=== PATIENT | male | born 1965 | race Caucasian/White ===

== ENCOUNTER 2020-11-26 09:32 | Outpatient (REF) | payer OTHER, SELFPAY ==
[2020-11-26 10:41] LABS: Hematocrit 46.4 % (42-52); Hemoglobin 15.8 g/dl (14.0-18.0); Mean Corpuscular HGB Conc 34.1 g/dl (31.0-36.0); Mean Corpuscular Hemoglobin 30.2 pg (27.0-33.0); Mean Corpuscular Volume 88.5 fL (80-98); Mean Platelet Volume 10.4 fL (9.4-12.4); Platelet Count 208 X10*3/uL (160-400); Red Blood Count 5.24 X10*6/uL (4.60-5.80); Red Cell Distribution Width 13.2 % (11.0-16.0)
[2020-11-26 11:03] LABS: Alanine Aminotransferase 17 U/L (0-40); Albumin Level 4.3 g/dL (3.5-5.0); Alkaline Phosphatase 61 U/L (39-117); Anion Gap 11 (12-20); Aspartate Amino Transferase 16 U/L (5-37); Bilirubin Total 0.6 mg/dL (0.0-1.0); Blood Urea Nitrogen 16 mg/dL (9-16); Calcium 8.8 mg/dL (8.4-10.2); Carbon Dioxide 25 mmol/L (22-29); Chloride 109 mmol/L (96-108); Cholesterol 191 mg/dL; Estimated Glomerular Filt Rate > 60; Glucose Random 92 mg/dL (60-115); HDL Cholesterol 34 mg/dL; LDL Cholesterol Calculated 138 mg/dl; Potassium 4.1 mmol/L (3.3-5.1); Sodium 141 mmol/L (135-145); Total Protein 6.9 g/dL (6.5-8.0); Triglycerides 97 mg/dL
[2020-11-26 11:23] LABS: Prostate Specific Antigen Scr 0.67 ng/mL (<0.05-4.0); TSH reflex Free T4 0.36 uIU/mL (0.32-4.0); Vitamin D 25-OH Total 16.4 ng/mL (>30)
== END 2020-11-26 09:33 | disposition home or self-care (01) ==
LOC: HO.LAB 09:32
PROVIDERS: PCP Internal Medicine; Visit Provider Internal Medicine
DX: Z00.00 Encounter for general adult medical examination without abnormal findings (principal); R53.83 Other fatigue; E55.9 Vitamin D deficiency, unspecified; Z12.5 Encounter for screening for malignant neoplasm of prostate
CPT/HCPCS: 36415; 80053; 80061; 82306; 84153; 84443; 85027

== ENCOUNTER 2021-06-23 09:30 | Outpatient (REF) | payer OTHER, SELFPAY ==
--- NOTE | ~2021-06-23 | XR_ITS ---
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 TECHNIQUE: frontal, lateral, tunnel and patella sunrise views FINDINGS: BONES: No fracture or dislocation is present. JOINTS: Narrowing of joint spaces suggest mild degenerative osteoarthritis. Articular surfaces remain smooth. No osteophytes. SOFT TISSUE: Normal XR/XR knee RT 4V IMPRESSION: Mild degenerative osteoarthritis. No joint effusion.
== END 2021-06-23 09:31 | disposition home or self-care (01) ==
LOC: HO.XRAY 09:30
PROVIDERS: PCP Internal Medicine; Visit Provider Internal Medicine
DX: M25.561 Pain in right knee (principal)
CPT/HCPCS: 73564

== ENCOUNTER 2022-04-30 09:01 | Outpatient (REF) | payer OTHER, SELFPAY ==
[2022-04-30 10:04] LABS: Hematocrit 46.7 % (42.0-52.0); Hemoglobin 15.6 g/dl (14.0-18.0); Mean Corpuscular HGB Conc 33.4 g/dl (31.0-36.0); Mean Corpuscular Hemoglobin 29.3 pg (27.0-33.0); Mean Corpuscular Volume 87.6 fL (80.0-98.0); Mean Platelet Volume 10.5 fL (9.4-12.4); Platelet Count 176 X10*3/uL (160-400); Red Blood Count 5.33 X10*6/uL (4.60-5.80); Red Cell Distribution Width 13.3 % (11.0-16.0)
[2022-04-30 10:39] LABS: Alanine Aminotransferase 22 U/L (0-40); Albumin Level 4.4 g/dL (3.5-5.0); Alkaline Phosphatase 57 U/L (39-117); Anion Gap 15 (12-20); Aspartate Amino Transferase 17 U/L (5-37); Bilirubin Total 1.2 mg/dL (0.0-1.0); Blood Urea Nitrogen 19 mg/dL (9-16); Calcium 8.8 mg/dL (8.4-10.2); Carbon Dioxide 23 mmol/L (22-29); Chloride 107 mmol/L (96-108); Cholesterol 200 mg/dL; Estimated Glomerular Filt Rate > 60; Glucose Fasting 86 mg/dL (60-99); HDL Cholesterol 39 mg/dL; LDL Cholesterol Calculated 145 mg/dl; Potassium 4.3 mmol/L (3.3-5.1); Sodium 141 mmol/L (135-145); Total Protein 7.1 g/dL (6.5-8.0); Triglycerides 81 mg/dL
[2022-04-30 11:02] LABS: Prostate Specific Antigen Scr 0.71 ng/mL (<0.05-4.0)
== END 2022-04-30 09:02 | disposition home or self-care (01) ==
LOC: HO.LAB 09:01
PROVIDERS: PCP Internal Medicine; Visit Provider Internal Medicine
DX: Z00.00 Encounter for general adult medical examination without abnormal findings (principal); R53.83 Other fatigue; Z12.5 Encounter for screening for malignant neoplasm of prostate
CPT/HCPCS: 36415; 80053; 80061; 84153; 84443; 85027

== ENCOUNTER 2022-08-23 11:23 | Outpatient (REF) | payer OTHER, SELFPAY ==
--- NOTE | ~2022-08-23 | XR_ITS ---
EXAMINATION: XR CHEST CLINICAL INFORMATION: Cough x3 weeks COMPARISON: None TECHNIQUE: 2 views of the chest were obtained. FINDINGS: The lungs are well-expanded and clear.. The heart size and perivascular is normal. There is moderate spondylosis dorsal spine. No aggressive lytic or sclerotic process seen. XR/XR chest 2V IMPRESSION: Unremarkable chest examination.
== END 2022-08-23 11:24 | disposition home or self-care (01) ==
LOC: HO.XRAY 11:23
PROVIDERS: PCP Internal Medicine; Visit Provider Internal Medicine
DX: J45.41 Moderate persistent asthma with (acute) exacerbation (principal)
CPT/HCPCS: 71046

== ENCOUNTER 2023-05-08 09:46 | Outpatient (REF) | payer OTHER, SELFPAY | END 2023-05-08 09:47 | disposition home or self-care (01) | LOC: HO.LAB 09:46 | PROVIDERS: PCP Internal Medicine; Visit Provider Internal Medicine | DX: Z00.00 Encounter for general adult medical examination without abnormal findings (principal); Z12.5 Encounter for screening for malignant neoplasm of prostate; E78.2 Mixed hyperlipidemia; R53.83 Other fatigue | CPT/HCPCS: 36415; 80053; 80061; 84153; 85025 ==

== ENCOUNTER 2023-09-25 09:54 | Emergency (ER) | payer OTHER, SELFPAY ==
[2023-09-25 10:26] VITALS: BP 153/93; PULSE 83; RESP 18; O2SAT 98; BMI 33.6
--- NOTE | 2023-09-25 13:15 | PC.NURSE ---
Patient not in waiting room at 12:55 or 1:06
== END 2023-09-25 13:33 | disposition left against medical advice (07) ==
LOC: HO.ED 13:21
PROVIDERS: Emergency Provider Emergency Medicine; PCP Internal Medicine
DX: R06.9 Unspecified abnormalities of breathing (principal)
CPT/HCPCS: 99281

== ENCOUNTER 2024-07-01 09:17 | Outpatient (REF) | payer OTHER, SELFPAY ==
[2024-07-01 09:39] LABS: MANUAL DIFF FLAG NO
[2024-07-01 10:46] LABS: Basophils Absolute Auto 0.1 X10*3/uL (0.0-0.2); Basophils Percent Auto 0.7 % (0-2); Eosinophils Absolute Auto 0.4 X10*3/uL (0.0-0.4); Hematocrit 47.1 % (42.0-52.0); Imm Gran Abs Auto 0.03 X10*3/uL (0.00-0.03); Imm Gran Pct Auto 0.3 % (0.0-0.4); Lymphocytes Absolute Auto 2.4 X10*3/uL (1.2-4.9); Lymphocytes Percent Auto 25.9 % (20-40); Mean Corpuscular Hemoglobin 30.2 pg (27.0-33.0); Mean Corpuscular Volume 88.9 fL (80.0-98.0); Monocytes Absolute Auto 0.7 X10*3/uL (0.1-1.2); Monocytes Percent Auto 7.1 % (2-11); Neutrophils Absolute Auto 5.7 x10*3/uL (2.0-8.3); Platelet Count 150 X10*3/uL (160-400); Red Cell Distribution Width 13.2 % (11.0-16.0); White Blood Count 9.1 X10*3/uL (4.8-10.8)
[2024-07-01 11:45] LABS: Prostate Specific Antigen 0.64 ng/mL (<0.05-4.0)
[2024-07-01 11:46] LABS: Alanine Aminotransferase 18 U/L (0-40); Albumin Level 4.3 g/dL (3.5-5.0); Alkaline Phosphatase 56 U/L (39-117); Anion Gap 10 (12-20); Aspartate Amino Transferase 19 U/L (5-37); Bilirubin Total 0.7 mg/dL (0.0-1.0); Blood Urea Nitrogen 17 mg/dL (9-16); Calcium 9.3 mg/dL (8.4-10.2); Carbon Dioxide 28 mmol/L (22-29); Chloride 109 mmol/L (96-108); Cholesterol 177 mg/dL (<200); Estimated Glomerular Filt Rate > 60; Glucose Random 84 mg/dL (60-115); HDL Cholesterol 35 mg/dL (>40); LDL Cholesterol Calculated 106 mg/dL (<100); Sodium 143 mmol/L (135-145); Total Protein 7.2 g/dL (6.5-8.0); Triglycerides 184 mg/dL (<150)
== END 2024-07-01 09:18 | disposition home or self-care (01) ==
LOC: HO.LAB 09:17
PROVIDERS: PCP Internal Medicine; Visit Provider Internal Medicine
DX: Z00.00 Encounter for general adult medical examination without abnormal findings (principal); I10 Essential (primary) hypertension; E78.2 Mixed hyperlipidemia; Z12.5 Encounter for screening for malignant neoplasm of prostate
CPT/HCPCS: 36415; 80053; 80061; 84153; 85025

== ENCOUNTER 2024-10-11 10:45 | Day surgery (SDC) | payer OTHER, SELFPAY ==
--- NOTE | 2024-10-10 10:15 | HO.ANESPROP2 ---
Documented by User: Alayna Hurtado NP 10/10/24 10:15 HPI - Anesthesia Eval Consult details Narrative: 59yo M for Colonoscopy [facility] Social History Social History Are you a primary health care social worker to a significant other at home: No Do you presently have visiting nurse or other home services: No Patient Tobacco Use Status: Never used Tobacco Cigarette Packs Per Day: 1 Cigarettes Per Day: 20.0 Years Smoked: 30 Use of substances other than those prescribed or required for medical reasons: No Have you been hit, kicked, punched, or otherwise hurt by someone within the past year? If so, by whom?: No Advance Directives: No Advance Directives Information Provided: Yes Advance Directives on File: No Recently lost weight without trying: No Nutrition Risks: No Nutritional Risk Poor oral hygiene: No Meds Allergies Allergy/AdvReac Type Severity Reaction Status Date / Time No Known Allergies Allergy Verified 10/11/24 11:43 [No Known Allergies*] Home Medications ?Medication ?Instructions ?Recorded ?Confirmed ?Last Taken ?Type budesonide-formoterol HFA 160 2 puff inhalation BID 10/10/24 10/10/24 Unknown History mcg-4.5 mcg/actuation aerosol inhaler Assessment and Plan Assessment Anesthesia Assessment: Chart Reviewed Documented by User: Jose Orellana MD 10/11/24 13:22 [facility] Family History Family history of problems with anesthesia: No Surgical History History of Problems with Anesthesia: No Social History Social History Are you a primary health care social worker to a significant other at home: No Do you presently have visiting nurse or other home services: No Patient Tobacco Use Status: Never used Tobacco Cigarette Packs Per Day: 1 Cigarettes Per Day: 20.0 Years Smoked: 30 Use of substances other than those prescribed or required for medical reasons: No Have you been hit, kicked, punched, or otherwise hurt by someone within the past year? If so, by whom?: No Advance Directives: No Advance Directives Information Provided: Yes Advance Directives on File: No Recently lost weight without trying: No Nutrition Risks: No Nutritional Risk Poor oral hygiene: No Meds Allergies Allergy/AdvReac Type Severity Reaction Status Date / Time No Known Allergies Allergy Verified 10/11/24 11:43 [No Known Allergies*] Home Medications ?Medication ?Instructions ?Recorded ?Confirmed ?Last Taken ?Type budesonide-formoterol HFA 160 2 puff inhalation BID 10/10/24 10/10/24 Unknown History mcg-4.5 mcg/actuation aerosol inhaler Exam Airway Mallampati Class: II TM Dist: <=3cm Neck ROM: Full Loose/Missing/Broken Teeth: No Heart: ok Lungs: ok Assessment and Plan Assessment Anesthesia Assessment: Anesthesia Plan Discussed Final Anesthetic Review Family History of Problems with Anesthesia: No History of Problems with Anesthesia: No NPO: Yes ASA Class: II Final Preanesthetic Review: No Changes in Pt Med Stat, Meds/Allgs Chart Reviewed, Consent Obtained/Reviewed and Anes Risks/Benef Reviewed Patient Risk: Intermediate Procedure Risk: Low Anesthetic Plan Anesthetic Plan: MAC: and Agree w/ Assess. and Plan Disposition: Standard PACU
[2024-10-11 11:52] VITALS: BP 107/76; PULSE 81; RESP 14; TEMP 36.7; O2SAT 97; BMI 32.4
[2024-10-11] MEDS: Lactated Ringers 1,000 ML 100 ML IVCONT (11:56)
--- NOTE | 2024-10-11 12:05 | MHC.SHP ---
Pre-Procedural Eval Section A - 24 Hr Update-Section A only Date of Service: 10/11/24 Section B - Complete if H&P > 30 days Chief Complaint: screening Details of Present Illness: see H&P no changes Relevant Family History (Specify if Yes): No Relevant Social History: None Present Medications: see Short Stay Collaborative assessment Medical History: No relevant PMH History of Previous Operations: No relevant previous surgery Allergies: Allergies Allergy/AdvReac Type Severity Reaction Status Date / Time No Known Allergies Allergy Verified 10/11/24 11:43 [No Known Allergies*] Review of Systems Sugical H&P ROS: Negative: Constitution, Cardiovascular, Respiratory, Neurological, Psychiatric, Hem-Onc, Allergic/Immunologic, Gastrointestinal, Genitourinary, Musculoskeletal, Integumentary, Endocrine and Eyes/Ears/Nose/Throat Exam Surgical H&P Exam: Normal: HEENT, Normal: Heart, Normal: Lungs, Normal: Extremities, Normal: Abdomen, Normal: Skin and Normal: Neurological Plan Diagnosis/Plan: Unchanged I have reviewed the history and physical and performed a pertinent physical examination on my patient. No changes have occurred unless specified. Time Spent With Patient Time: Total time managing care of this patient today ____ minutes.
[2024-10-11 14:03] VITALS: BP 115/71; PULSE 75; RESP 18; TEMP 36.5; O2SAT 97
--- NOTE | 2024-10-12 00:06 | OP_ITS ---
DATE OF SERVICE: 10/11/2024 SURGEON: Go Alegre MD INDICATIONS: Colon cancer screening. PREOPERATIVE DIAGNOSIS: POSTOPERATIVE DIAGNOSIS: PROCEDURE PERFORMED: Colonoscopy to the cecum with snare polypectomy and biopsy. ESTIMATED BLOOD LOSS: COMPLICATIONS: ANESTHESIA: Monitored anesthesia care. ASSISTANTS: SPECIMENS: DESCRIPTION OF PROCEDURE: A history and physical was performed. The risks and benefits of the procedure were explained to the patient. Informed consent was obtained. The patient was placed in the left lateral decubitus position. A digital rectal exam was performed and was found to be normal. The Olympus pediatric video colonoscope was introduced into the rectum and advanced to the cecum. The cecum was identified by transillumination, palpation, and identification of ileocecal valve. Examination was performed. The scope was removed. He tolerated the procedure well and was returned to the recovery area in stable condition. FINDINGS: The terminal ileum was not examined. There was some liquid stool coating the mucosa. This was washed and suctioned. Five polyps were identified; 1 in the cecum, 2 in the right colon, 1 at the hepatic flexure, and 1 in the sigmoid at 30 cm; all were removed using cold snare and/or biopsy forceps. The polyp in the sigmoid appeared to be consistent with a lipoma. All were less than 10 mm. One polyp in the right colon was not recovered. Retroflexed examination showed moderate-sized internal hemorrhoids. IMPRESSION: Colon polyps. RECOMMENDATION: Follow up the biopsy results. MD YAMILE Corona/SARAL / [id number]
== END 2024-10-11 14:51 | disposition home or self-care (01) ==
PROVIDERS: PCP Internal Medicine; Visit Provider Internal Medicine Gastroenterology
PROC: 0DJD8ZZ Inspection of Lower Intestinal Tract, Via Natural or Artificial Opening Endoscopic (ICD-10-PCS; CPT 45378; principal; 2024-10-11 13:20)
DX: Z12.11 Encounter for screening for malignant neoplasm of colon (principal); Z86.0101 Personal history of adenomatous and serrated colon polyps; D12.2 Benign neoplasm of ascending colon; D12.3 Benign neoplasm of transverse colon; D12.5 Benign neoplasm of sigmoid colon; K63.5 Polyp of colon; I10 Essential (primary) hypertension; J45.909 Unspecified asthma, uncomplicated; G47.33 Obstructive sleep apnea (adult) (pediatric); Z79.899 Other long term (current) drug therapy; Z99.89 Dependence on other enabling machines and devices; F17.210 Nicotine dependence, cigarettes, uncomplicated
CPT/HCPCS: 45385; 88305; J2003; J2704

== ENCOUNTER 2025-04-23 10:18 | Outpatient (REF) | payer OTHER, SELFPAY ==
--- OUTSIDE RECORDS SUMMARY | 2024-09-13 07:40 | XMS_ITS ---
Author Organization [facility] Address [address] [place] [address] Care Team Providers Care Sleever Name Role Phone Fernando Mirza MD Primary Care Provider Unavailab Go Martinez Jr Unavailable REASON FOR VISIT screening Encounters Encounter Location Date Provider Diagnosis [facility] [place] [address] [place] [phone] 09/13/2024 Go Alegre Jr Plan Of Treatment No Information Progress Notes * JEANNIE ELIZONDODOB:[birth year] (59 yo M)Acc No.[id number]:09/13/2024 COLON WITH MAC Patient: JEANNIE LANDRUM Provider: Frankie Alegre MD :1965 A ge:59 Y S ex:Male Date:09/13/2024 Address:[address] [place], [place] [phone] Pcp:Fernando Mirza MD Subjective: * Chief Complaints: [...] MD Date: 0 09/13/2024 Generated for Subhash ng/Faravinderg/eTransmitting on: 0 04/23/2025 12:43 PM EDT
--- OUTSIDE RECORDS SUMMARY | 2024-10-11 09:20 | XMS_ITS ---
Author Organization [facility] Address [address] [place] [address] Care Team Providers Care Prescription Benefit Specialist Name Role Phone Fernando Mirza MD Primary Care Provider Unavailab Go Martinez Jr Unavailable REASON FOR VISIT screening Encounters Encounter Location Date Provider [place] [facility] [place] [address] [place] [phone] 10/11/2024 Go Alegre Jr Colon cancer screening [...] * JEANNIE ELIZONDODOB:[birth year] (59 yo M)Acc No.[id number]:10/11/2024 COLON WITH MAC Patient: JEANNIE LANDRUM Provider: Frankie Alegre MD :1965 A ge:59 Y S ex:Male Date:10/11/2024 [place] [address] [facility] [id number] Pcp:Fernando Mirza MD Subjective: * Chief Complaints: * 1 . Screening. * Medical History: Objective: * Vitals: Assessment: * Assessment: 1. C olon cancer screening - Z12.11 (Primary) 2 . P ersonal history of adenomatous and serrated colon polyps - Z86.0101 3 . C olon polyps - K63.5 ? Plan: * Treatment: * Procedure Codes: 4 5385 LESION REMOVAL COLONOSCOPY, 44250 COLONOSCOPY AND BIOPSY, Modifiers: 59 , 0529F INTRVL 3+YRS PTS CLNSCP DOCD * * The named appointment provid er may or may not be the originator of this progress note, and it is not deemed complete until electronically signed by the appointment provider. Sign off status: Pending * Provider: Frankie Alegre MD Date: 0 10/11/2024 Generated for Subhash bacon/Kathleen/Darronitting on: 0 04/23/2025 12:43 PM EDT
--- NOTE | ~2025-04-23 | XR_ITS ---
EXAMINATION: XR CHEST CLINICAL INFORMATION: ACUTE COUGH COMPARISON: August 23, 2022 TECHNIQUE: PA and lateral views FINDINGS: Pulmonary reticular pattern. Patchy opacity right lower hemithorax. No pleural effusion or pneumothorax. No gross hyperinflation. Cardiomediastinal silhouette size is normal with calcified plaques in the thoracic aortic arch. Multilevel thoracolumbar spondylosis.. XR/XR chest 2V IMPRESSION: Chronic interstitial lung disease with questionable acute airspace disease right middle lung lobe and right lung base. Underlying neoplasm cannot be excluded. Electronically signed by: Dariel Herbert MD 04/23/2025 11:31 AM EDT
--- OUTSIDE RECORDS SUMMARY | 2025-04-23 12:43 | XMS_ITS | Patient Health Record ---
Author Organization [facility] Address [address] [place] [address] Care Team Providers Care Chief Librarian Extension Department Name Role Phone Yuki MARIE, Fernando Primary Care Provider Go Green Jr Unavailable [phone] Allergies No Known Allergies Results Component Value Reference Range Notes Pathology Reviewed date:10/15/2024 01:29:38 PM Interpretation: Performing Lab:[facility], [address] [place] [phone] Notes/Report: Reason For Referral No Information Medications Medication SIG (Take, Route, Frequency, Duration) Notes Start Date End Date Status MiraLax (colon prep) 8.3 ounce ((238) grams mixed with Gatorade or Crystal Light orally begin at 5:00 p.m. the day before the procedure for 1 day 08/30/2024 Active Dulcolax (colon prep) 5 MG take at 3:00 p.m and 7:00p.m. Orally two tablets twice a day for one day for 1 day 08/30/2024 Active MiraLax (colon prep) 17 GM/SCOOP mixed with Gatorade or Crystal Light Orally begin at 5:00 p.m. the day before the procedure for 1 day 08/29/2024 Active Immunizations Vaccine Route Administration Date Status Comme nts Influenza Unknown 05/25/2018 Administered Social History Tobacco Use: Social History Observation Description Date Details (start date - stop date) Current Smoker NA - NA Tobacco Use/Smoking Question Answer Notes Patient is a current smoker How often do you smoke cigarettes? every day How many cigarettes a day do you smoke? 11-20 How soon after you wake up d o you smoke your first cigarette? 6-30 minutes Are you interested in quitting? Thinking about q uitting Alcohol Screen Question Answer Notes Did you have a drink contain ing alcohol in the past year? Yes How often did you have a dri nk containing alcohol in the past year? 2 to 4 times a month (2 points) How many drinks did you have on a typical day when you were drinking in the past year? 1 or 2 drinks (0 point) How often did you have 6 or more drinks on one occasion in the past year? Never (0 point) Points 2 Interpretation Negative Problems Problem Type SNOMED Code ICD Code Onset Dates Problem Status W/U Status Risk Notes Problem 751140322 Colon cancer screening (Z12.11) Active confirmed Problem 99729185 Rectal bleeding (K62.5) Active confirmed Problem 97569109 Encounter for other preprocedural examination (Z01.818) Active confirmed Problem 273173100 Personal history of colonic polyps (Z86.0100) Active confirmed Vital Signs Blood pressure diastolic 00 mm Hg 08/29/2024 Height 67 in 08/29/2024 Blood pressure systolic 00 mm Hg 08/29/2024 Weight 210 lbs 08/29/2024 BMI 32.89 kg/m2 08/29/2024 Encounters Encounter Location Date Provider Diagnosis [facility] Outpatient [address] [place], [place] [phone] 10/11/2024 Go Alegre Jr Colon cancer screening Z12.11 ; Personal history of adenomatous and serrated colon polyps Z86.0101 and Colon polyps K63.5 [facility] [address] [place] [phone] 08/29/2024 Go Alegre Jr Colon cancer screening Z12.11 ; Encounter for other preprocedural examination Z01.818 and Personal history of colonic polyps Z86.0100 [facility] [address] [place] [phone] 08/29/[address] [facility] [address] [place] [phone] 09/02/[address] [facility] [address] [place] [phone] 09/03/[address] [facility] [address] [place] [phone] 10/15/2024 Go Candelarioifford Assessments Encounter Date Diagnosis (ICD Code) Assessment Notes Treatment Notes Treatment Clinical Notes Section Notes 10/11/2024 Colon cancer screening (ICD-10 - Z12.11) 10/11/2024 Personal history of adenomatous and serrated colon polyps (ICD-10 - Z86.0101) 08/29/2024 Colon cancer screening (ICD-10 - Z12.11) Colonoscopy material was printed We discussed colonoscopy today. We discussed risks and benefits of the procedure today. He understands these and agrees to proceed. 08/29/2024 Encounter for other preprocedural examination (ICD-10 - Z01.818) We discussed colonoscopy today. We discussed risks and benefits of the procedure today. He understands these and agrees to proceed. 10/11/2024 Colon polyps (ICD-10 - K63.5) 08/29/2024 Personal history of colonic polyps (ICD-10 - Z86.0100) We discussed colonoscopy today. We discussed risks and benefits of the procedure today. He understands these and agrees to proceed. Plan Of Treatment Future Test Test Name Order Date COLONOSCOPY 02/25/2016 COLONOSCOPY 04/11/2019 COLONOSCOPY 08/29/2024 Insurance Providers Payer Name Payer Address Payer Phone Subscriber Number Group Number Insured Name Patient Relationship to Insured Coverage Start Date Coverage End Date [employer] [address] [address] [place] [address] [id number] JEANNIE ELIZONDO Self - patient is the insured Medical (General) History Medical History History ICD Code Colonoscopy 06/18, tubular adenoma, five -year followup asthma hypertension Obstructive sleep apnea/CPAP Surgical History Surgery Date(Month/Year)
--- OUTSIDE RECORDS SUMMARY | 2025-04-23 12:43 | XMS_ITS | Clinical Summary ---
Author Organization [facility] Address [address] [address] Phone Care Team Providers Care Ballistic Expert Name Role Phone Fernando Mirza MD Primary Care Provider [phone] Immunizations Immunization Administration Dates Next Due COVID-19 (Pre-05/22) Moderna Vaccine, mRNA, PF 0 09/24/2020,08/27/2020 Social History Tobacco Use Types Packs/Day Years Used Date Smoking Tobacco: Never Assessed Education Answer Date Recorded Are you interested in more education? Not on savannah e 11/25/2022 Are you concerned about learning? Not on file 11/25/2022 No 11/25/2022 No 11/25/2022 Digital Access Answer Date Recorded No 12/24/2022 No 12/24/2022 No 12/24/2022 Reliable internet access at home? Not on file 12/24/2022 Device with a working camera? Not on file Sex and Gender Information Value Date Recorded Sex Assigned at Not on file Legal Sex Male 4:01 PM EST Gender Identity Not on file Sexual Orientation Not on file Plan of Treatment Health Maintenance Due Date Last Done Comments Adult Td,Tdap Booster 1965 LIPID PANEL 1965 DEPRESSION SCREENING 1977 SMOKING Hx and SMOKELESS TOBACCO SCREENING 1978 HEPATITIS C SCREENING 1983 HIV ONE-TIME SCREENING (18-6 5 YEARS) 1983 COLOGUARD 2010 COLONOSCOPY 2010 COLORECTAL CANCER SCREENING 2010 FIT TEST 2010 FOBT 2010 SIGMOIDOSCOPY 2010 VIRTUAL COLONOSCOPY 2010 PNEUMOCOCCAL VACCINES (50+ years) (1 of 1 - PCV) 2015 INFLUENZA VACCINE (#1) 2025 04/21/2020 COVID-19 VACCINE (3 - 2024-2 6 season) 2025 09/24/2020, 08/27/2020 ZOSTER VACCINES Completed 08/03/2020, 06/20/2020 HEPATITIS A VACCINES Aged Out No long er eligible based on patient's age to complete this topic HIB VACCINES Aged Out No longer eligi ble based on patient's age to complete this topic MENINGOCOCCAL VACCINES (ACWY) Aged Out No longer eligible based on patient's age to complete this topic MENINGOCOCCAL VACCINES (B) Aged Out N o longer eligible based on patient's age to complete this topic Medical Devices Not on file Insurance [employer] Member Subscriber Plan / Payer (Ef fective 2016-Present) Name:Ruddy Nguyen Relation to Subscriber:Self Name:Ruddy Nguyen Payer ID:[id number] (NAIC) Type:PPO Address: [place] [id number] [facility] [employer]EF[employer] ADMIN[employer] [facility]MIN[facility] [employer] [facility] [employer] Care Teams Ballistic Expert Relationship Specialty Start Date End Date Fernando Mirza MD [address] [place] [phone] PCP - General Internal Medicine 08/25/20 Additional Source Comments The information contained in this document represents components of the legal health record. It is not the complete legal health record.[facility]
--- OUTSIDE RECORDS SUMMARY | 2025-04-23 12:43 | XMS_ITS | Clinical Summary ---
Author Organization [facility] Address [address] [place] [address] Care Team Providers Care Bowling Ball Grader And Marker Name Role Phone Unavailable Primary Care Provider Unavailabl e Allergies No known active allergies Medications * This document contains information received from the source organization and may not represent a complete record from that organization. No known medications Social History Tobacco Use Types Packs/Day Years Used Date Smoking Tobacco: Former Smokeless Tobacco: Never Alcohol Use Standard Drinks/Week Comments Not Asked 0 (1 standard drink = 0.6 oz pur e alcohol) Sex and Gender Information Value Date Recorded Sex Assigned at Not on file Legal Sex Male 3:56 PM EDT Gender Identity Not on file Sexual Orientation Not on file Last Filed Vital Signs Vital Sign Reading Time Taken Comments Blood Pressure 128/80 12/16/2014 9:17 AM EDT Pulse 72 12/16/2014 9:17 AM EDT Temperature - - Respiratory Rate - - Oxygen Saturation - - Inhaled Oxygen Concentration - - Weight 99.8 kg (220 lb) 12/16/2014 9:17 AM EDT Height 175.3 cm (5' 9 ) 12/16/2014 9:17 AM EDT Body Mass Index 32.49 12/16/2014 9:17 AM EDT Plan of Treatment Health Maintenance Due Date Last Done Comments Hepatitis C Screening 1965 DTaP/Tdap/Td (1 - Tdap) 1983 Hep B (1 of 3 - 19+ 3-dose series) 1984 Pneumococcal 50+ years (1 of 1 - PCV) 2015 Zoster (Shingrix) (1 of 2) 2015 COVID-19 Vaccine ( - 2023-2 5 season) 2025 Influenza (#1) 2025 HPV Vaccine (No Doses Required) Completed Hep A Aged Out No longer eligi ble based on patient's age to complete this topic Hib Aged Out No longer eligi ble based on patient's age to complete this topic Meningococcal ACWY Aged Out No longer eligible based on patient's age to complete this topic
--- OUTSIDE RECORDS SUMMARY | 2025-04-23 12:44 | XMS_ITS | Clinical Summary ---
Author Organization [facility] Address [address] [place] [address] Phone Care Team Providers Care Trust Evaluation Supervisor Name Role Phone Fernando Mirza MD Primary Care Provider [phone] Encounters Date Type Department Care Team Description 04/22/2025 Telephone Lung Screening Program - [place] [address] [facility] [address] [place] [phone] Zuri Ray MA from Last 3 Months Social History Tobacco Use Types Packs/Day Years Used Date Smoking Tobacco: Never Assessed Sex and Gender Information Value Date Recorded Sex Assigned at Not on file Legal Sex Male 3:57 AM EST Gender Identity Not on file Sexual Orientation Not on file Plan of Treatment Upcoming Encounters Date Type Department Care Team (Late st Contact Info) Description 05/09/2025 5:15 PM EDT Hospital Encounter [facility] CT Scan [address] [place] [phone] Health Maintenance Due Date Last Done Comments DTaP,Tdap,and Td Vaccines (1 - Tdap) 1984 Hepatitis B Vaccines (1 of 3 - 19+ 3-dose series) 1984 Pneumococcal Vaccine: 50+ Ye ars (1 of 1 - PCV) 2015 Zoster Vaccines (1 of 2) 2015 Cholesterol Screening (Lipid Panel) 07/03/2022 Colorectal Cancer Screening: Colonoscopy 07/03/2022 HIV Screening 07/03/2022 Hepatitis C Screening 07/03/2022 Social Influencers of Health Screening 07/03/2022 Depression Screening 07/31/2024 COVID-19 Vaccine (1 - 2023-2 5 season) 2025 Influenza Vaccine (#1) 2025 RSV Immunization Adult Patie nts (1 - 1-dose 75+ series) 2040 HIB Vaccines Aged Out No longer eligi ble based on patient's age to complete this topic HPV Vaccines Aged Out No longer eligi ble based on patient's age to complete this topic Hepatitis A Vaccines Aged Out No long er eligible based on patient's age to complete this topic IPV Vaccines Aged Out No longer eligi ble based on patient's age to complete this topic MMR Vaccines Aged Out No longer eligi ble based on patient's age to complete this topic Meningococcal ACWY Vaccine Aged Out N o longer eligible based on patient's age to complete this topic Meningococcal B Vaccine Aged Out No l onger eligible based on patient's age to complete this topic RSV Immunization Patients Un luis alfredo 20 months Aged Out No longer eligible b ased on patient's age to complete this topic Varicella Vaccines Aged Out No longer eligible based on patient's age to complete this topic Insurance Care Teams Trust Evaluation Supervisor Relationship Specialty Start Date End Date Fernando Mirza MD PCP - General 09/28/10
--- OUTSIDE RECORDS SUMMARY | 2025-04-23 12:44 | XMS_ITS | Encounter Summary ---
Author Organization [facility] Address [address] [place] [address] Care Team Providers Care Supervisor Process Testing Name Role Phone Fernando Mirza MD Primary Care Provider [phone] Reason for Visit * Reason Onset Date Comments Appointment 04/22/2025 1st Notification Encounter Details Date Type Department Care Team ([facility] st Contact Info) Description 04/22/2025 Telephone Lung Screening Program - [address] [address] Zuri Ray [place] Social History Tobacco Use Types Packs/Day Years Used Date Smoking Tobacco: Never Assessed Sex and Gender Information Value Date Recorded Sex Assigned at Not on file Legal Sex Male 3:57 AM EST Gender Identity Not on file Sexual Orientation Not on file documented as of this encounter Progress Notes * Zuri Ray MA - 04/22/2025 2:41 PM EDT Ruddy Nguyen was contacted by the Lung Cancer Screening Program today to confirm the appointmentof their Lung Cancer Screening. The patient is currently scheduled to have their screening on Friday May 09, 2025, at 515 PM at [facility]. No answer left message. For all screenings scheduled during the week, the patient will check in at Patient Registration on the first floor of the main hospital. For screenings that take place on the weekend or after 5pm, check-in directly in Radiology. The patient was given the Lung Cancer Screening Program phone number, , to contact if they have any additional questions, concerns or need to reschedule. Patients are encouraged to call our office and reschedule if they are exhibiting any cold-like symptoms, have recently been treated for Pneumonia or Influenza (the flu) or have had another CT of their Chest since their last screening. documented in this encounter Plan of Treatment Upcoming Encounters Date Type Department Care Team (Late st Contact Info) Description 05/09/2025 5:15 PM EDT Hospital Encounter [facility] CT Scan [address] [place] [phone] documented as of this encounter Visit Diagnoses Not on filedocumented in this encounter Care Teams Supervisor Process Testing Relationship Specialty Start Date End Date Fernando Mirza MD PCP - General 09/28/10 documented as of this encounter
== END 2025-04-23 10:19 | disposition home or self-care (01) ==
LOC: HO.XRAY 10:18
PROVIDERS: PCP Internal Medicine; Visit Provider Internal Medicine
DX: R05.1 Acute cough (principal)
CPT/HCPCS: 71046

== ENCOUNTER → 2025-04-23 10:53 | Outpatient (BNV) | payer OTHER, SELFPAY | PROVIDERS: PCP Internal Medicine; Visit Provider Radiology Diagnostic Radiology | DX: R05.1 Acute cough (principal) | CPT/HCPCS: 71046 ==

== ENCOUNTER 2025-05-02 11:27 | Emergency (ER) | payer OTHER, SELFPAY ==
--- OUTSIDE RECORDS SUMMARY | 2024-09-13 07:40 | XMS_ITS ---
Author Organization [facility] Address [address] [place] [address] Care Team Providers Care Analysis Director Name Role Phone Fernando Mirza MD Primary Care Provider Unavailab Go Martinez Jr Unavailable REASON FOR VISIT screening Encounters Encounter Location Date Provider Diagnosis [facility] [place] [address] [place] [phone] 09/13/2024 Go Alegre Jr Plan Of Treatment No Information Progress Notes * JEANNIE ELIZONDODOB:[birth year] (59 yo M)Acc No.[id number]:09/13/2024 COLON WITH MAC Patient: JEANNIE LANDRUM Provider: Frankie Alegre MD :1965 A ge:59 Y S ex:Male Date:09/13/2024 Address:[address] [place], [place] [phone] Pcp:Fernando Mirza MD Subjective: * Chief Complaints: [...] 0 09/13/2024 Generated for Subhash bacon/Kathleen/eTransmitting on: 1 01:45 PM EDT
--- OUTSIDE RECORDS SUMMARY | 2024-10-11 09:20 | XMS_ITS ---
Author Organization [facility] Address [address] [place] [address] Care Team Providers Care Building Services Engineer Name Role Phone Fernando Miraz MD Primary Care Provider Unavailab Go Martinez Jr Unavailable [phone] REASON FOR VISIT screening Encounters Encounter Location Date Provider Diagnosis [facility] [place] [address] [place] [phone] 10/11/2024 Go Alegre Jr Colon cancer screening [...] * JEANNIE ELIZONDODOB:[birth year] (59 yo M)Acc No.[id number]:10/11/2024 COLON WITH MAC Patient: JEANNIE LANDRUM Provider: Frankie Alegre MD :1965 A ge:59 Y S ex:Male Date:10/11/2024 [place] [address] [facility] [id number] Pcp:Fernando Mirza MD Subjective: * Chief Complaints: * 1 . Screening. * Medical History: Objective: * Vitals: Assessment: * Assessment: 1. C olon cancer screening - Z12.11 (Primary) 2 . P ersonal history of adenomatous and serrated colon polyps - Z86.0101 3 . C olon polyps - K63.5 ? Plan: * Treatment: * Procedure Codes: 4 5385 LESION REMOVAL COLONOSCOPY, 95450 COLONOSCOPY AND BIOPSY, Modifiers: 59 , 0529F INTRVL 3+YRS PTS CLNSCP DOCD * * The named appointment provid er may or may not be the originator of this progress note, and it is not deemed complete until electronically signed by the appointment provider. Sign off status: Pending * Provider: Frankie Alegre MD Date: 0 10/11/2024 Generated for Subhash bacon/Kathleen/Jessasmitting on: 1 01:45 PM EDT
--- NOTE | ~2025-05-02 | CT_ITS ---
EXAMINATION: CT CHEST WITH CONTRAST CLINICAL INFORMATION: Shortness of breath COMPARISON: 04/23/2025 x-ray TECHNIQUE: Multidetector volumetric CT imaging of the chest was obtained after the administration of 65 mL of Omnipaque 350 intravenous contrast without immediate adverse reactions. Axial MIP volume rendering provided. Sagittal and coronal reformatted images were obtained. This CT examination was performed using dose optimization techniques as appropriate, variously including the following: *Automated exposure control *Adjustment of mA and/or kV according to patient size (this includes techniques or standardized protocols for targeted exams where dose is matched to indication/reason for exam; i.e. extremities or head) *Use of iterative reconstruction technique FINDINGS: LUNGS: The lungs are clear with no evidence of inflammation or nodules. Right middle lobe opacity visible on the prior x-ray is no longer present. MEDIASTINUM: Multiple low attenuating nodules are present in the thyroid gland. PLEURA: There is no pleural effusion. No pleural mass or thickening. AXILLA: No lymphadenopathy. UPPER ABDOMEN: Small hypodensities in the liver likely represent cysts or less likely hemangiomas. OSSEOUS STRUCTURES: Bridging and nonbridging anterior osteophytes are present in the thoracic spine with minimal disc space narrowing. CT/CT chest w IV con IMPRESSION: Unremarkable lungs. Numerous thyroid hypodensities are visible. Follow-up with nonemergent thyroid ultrasound There are changes in the thoracic spine consistent with diffuse idiopathic skeletal hyperostosis (DISH) Fleischner guidelines were followed. Electronically signed by: Jefry Daugherty MD 05/02/2025 03:47 PM EDT
[2025-05-02 11:32] VITALS: BP 134/80; PULSE 82; RESP 16; TEMP 36.4; O2SAT 99; BMI 27.4
--- NOTE | 2025-05-02 11:34 | ED.GENADULT ---
HPI - General Adult General Chief complaint: Upper Respiratory Symptoms Stated complaint: Back Pain No Injury Time Seen by Provider: 05/02/25 13:33 Source: patient Mode of arrival: ambulatory Limitations: no limitations History of Present Illness ED Provider: SUNDAR Patel HPI narrative: This is a 59-year-old male with no significant medical history presents to the emergency department with shortness of breath, cough, feeling unwell greater than a week. He reports he was recently treated for pneumonia with multiple antibiotics including cefpodoxime, doxycycline and an amoxicillin based antibiotic. Was also given prednisone. Despite all this he continues to have a cough and now he is coughing so much his back and ribs hurt. He tells me he feels drained, and overall unwell. Denies chest pain, headache, vision changes, dizziness, weakness, changes in urinary or bowel habits, abdominal pain, nausea, vomiting, diarrhea. Denies sick contacts. Denies recent travel , nonsmoker Related Data Home Medications ?Medication ?Instructions ?Recorded ?Confirmed budesonide-formoterol HFA 160 2 puff inhalation BID 10/10/24 10/10/24 mcg-4.5 mcg/actuation aerosol inhaler Previous Rx's ?Medication ?Instructions ?Recorded albuterol sulfate 90 mcg/actuation 2 inh inhalation Q4-6H PRN 05/02/25 breath activated powder inhaler shortness of breath or wheezing #1 ea ketorolac 10 mg tablet 10 mg PO TID PRN pain 5 days #15 05/02/25 tabs prednisone 20 mg tablet 40 mg (2 x 20 mg) PO DAILY 5 days 05/02/25 #10 tabs Allergies Allergy/AdvReac Type Severity Reaction Status Date / Time No Known Allergies (No Known Allergy Verified 05/02/25 11:32 Allergies*) Review of Systems Review of Systems: Yes all other systems are reviewed and are negative PMFSH Past Medical History Attestation statement: The following information was validated with the patient. Source: old records reviewed and nursing notes reviewed Social History Social History Are you a primary home care music therapist to a significant other at home: No Do you presently have visiting nurse or other home services: No Patient Tobacco Use Status: Never used Tobacco Cigarette Packs Per Day: 1 Cigarettes Per Day: 20.0 Years Smoked: 30 Advance Directives: No Advance Directives Information Provided: No Physical Exam ED Exam Exam: Appearance: Alert.? Oriented X3.? No acute distress.? Head: Normocephalic, atraumatic, no step-offs or deformities Eyes: Pupils equal, round and reactive to light.? Neck: Normal inspection.? Neck supple.? CVS: Normal heart rate and rhythm.? Pulses normal.? Respiratory: No respiratory distress.? Breath sounds bibasilar crackles .? Abdomen: Soft and nontender.? Skin: Skin warm and dry.? Normal skin color.? Normal skin turgor.? Extremities: No lower extremity edema.? No calf ttp. 5/5 strength to bilateral upper and lower extremities Neuro: Oriented X 3.? No motor deficit.? No sensory deficit. CN 2-12 intact Vital Signs: Vital Signs - 24 hr 05/02/25 11:32 05/02/25 14:23 05/02/25 16:29 Temperature 97.6 F 98.2 F Pulse Rate 82 70 86 Respiratory Rate 16 18 18 Blood Pressure 134/80 124/70 125/89 Pulse Oximetry 99 97 98 Oxygen Delivery Method Room Air Room Air Room Air BMI result Body Mass Index 27.4 vss Course Course Course Narrative: This is a rapid medical exam performed by Nancy Lemon NP: Additional HPI, ROS, PE not included below will be deferred to primary provider. Patient is a 59-year-old male presenting emergency department with complaint of right mid back pain. States has had cough for 3 weeks, was tx for pneumonia but sxs not improving. Was also told he had an abnormal finding on his cxr. PCP told pt there was nothing else he could do and referred to the ED> Plan: Labs, will defer imaging to primary provider. Reevaluation(s) Reevaluation #1: Patient does report that he has some back discomfort particularly in the right lower back lumbar paraspinous tenderness on palpation. No saddle anesthesias, I do not suspect cauda equina, cord compression, epidural abscess. Patient is not at risk for this. He is ambulatory. Will give him Toradol. CBC did have a leukocytosis no left shift. I suspect this is secondary to patient taking steroids as he reports he was taking prednisone. Chemistry unremarkable. Negative lactic acid. Coags negative and negative D-dimer unlikely PE he is saturating 98% with ambulatory trial. Flu, COVID negative. CT chest with unremarkable lungs numerous thyroid hypodensities follow-up with nonemergent thyroid ultrasound. Changes in the thoracic spine consistent with diffuse idiopathic skeletal hyperostosis. I did educate patient on these findings he is aware, at bedside also. No questions. Will have him follow up with PCP. Educated patient on diagnosis and treatment plan, answered all question, patient verbalizes understanding. At this time patient will be discharged home, advised to return with new or worsening symptoms. Educated on worrisome signs and symptoms and when to return. At this time I feel comfortable discharge home. Time: 17:30 Medications Administered Discontinued Medications Generic Name Dose Route Start Last Admin Trade Name Freq PRN Reason Stop Dose Admin Ceftriaxone Sodium 1 gm 05/02/25 15:36 05/02/25 16:07 Ceftriaxone Sodium 1 Gm Vial IVPUSH 05/02/25 15:37 1 gm ONCE ONE Administration Magnesium Sulfate 2 gm in 50 mls @ 25 mls/hr 05/02/25 15:36 05/02/25 16:07 Magnesium Sulfate/H2o IV 05/02/25 17:35 25 mls/hr ONCE ONE Administration Iohexol 100 ml 05/02/25 15:37 05/02/25 15:37 Iohexol 350 Mg/Ml 100 Ml Infus..Btl IV 05/02/25 15:38 65 ml ONCE ONE Administration Methylprednisolone Sodium Succinate 125 mg 05/02/25 15:36 05/02/25 16:07 Methylprednisolone Sod Succ 125 Mg/2 Ml Vial IVPUSH 05/02/25 15:37 125 mg ONCE ONE Administration Medical Decision Making Medical Decision Making [facility] Narrative: 1350 59-year-old male presents with shortness of breath ongoing for greater than a week. Recently treated for pneumonia with multiple antibiotics. Patient does tell me he was treated with cefpodoxime, an amoxicillin based antibiotic and doxycycline. He does tell me he was treated with 1 before the others however unclear exactly why he was on multiple antibiotics. He tells me at some point they saw on abnormality on chest x-ray which was done by PCP so they advised him to get a CT of the chest. Physical exam bibasilar crackles. Patient coughing during my exam with a dry cough. No tachycardia noted History and physical exam concerning for not improving pneumonia versus bronchitis versus viral illness. Less likely PE however will rule out. Unlikely ACS, acute hypoxic respiratory failure, dissection. Plan labs, imaging Differential Diagnosis Differential Diagnoses: The differential diagnosis associated with the presentation includes (History and physical exam concerning for not improving pneumonia versus bronchitis versus viral illness. Less likely PE however will rule out. Unlikely ACS, acute hypoxic respiratory failure, dissection.) Admission/Observation Consideration of admission/observation: Escalation of care including admission/observation considered (possisble ) Consult Healthcare Provider Management of the patient was discussed with: Hospitalist Lab Data MDM Lab Attestation statement: I reviewed the patient's lab results. 05/02/25 11:43 05/02/25 11:43 Labs: Lab Results 05/02/25 05/02/25 05/02/25 Range/Units 11:43 13:44 15:53 WBC 14.6 H (4.8-10.8) X10*3/uL RBC 5.63 (4.60-5.80) X10*6/uL Hgb 16.8 (14.0-18.0) g/dl Hct 48.3 (42.0-52.0) % MCV 85.8 (80.0-98.0) fL MCH 29.8 (27.0-33.0) pg MCHC 34.8 (31.0-36.0) g/dl RDW 13.2 (11.0-16.0) % Plt Count 172 (160-400) X10*3/uL MPV 10.9 (9.4-12.4) fL Immature Gran % (Auto) 1.6 H (0.0-0.4) % Neut % (Auto) 72.3 (45-73) % Lymph % (Auto) 18.9 L (20-40) % Sawyer % (Auto) 5.7 (2-11) % Eos % (Auto) 1.1 (0-4) % Baso % (Auto) 0.4 (0-2) % Lymph # (Auto) 2.8 (1.2-4.9) X10*3/uL Sawyer # (Auto) 0.8 (0.1-1.2) X10*3/uL Eos # (Auto) 0.2 (0.0-0.4) X10*3/uL Baso # (Auto) 0.1 (0.0-0.2) X10*3/uL Abs Immat Gran (auto) 0.24 H (0.00-0.03) X10*3/uL Absolute Neuts (auto) 10.6 H (2.0-8.3) x10*3/uL Absolute Nucleated RBC 0.000 (0.0-0.012) X10*3/uL Nucleated RBC % (auto) 0.0 (0.0-0.2) /100WBC PT 11.2 (10.9-12.4) SEC INR 1.0 (0.9-1.1) D-Dimer High Sensitivty < 150 NG/ML Sodium 141 (135-145) mmol/L Potassium 4.1 (3.3-5.1) mmol/L Chloride 105 (96-108) mmol/L Carbon Dioxide 31 H (22-29) mmol/L Anion Gap 9 L (12-20) BUN 13 (9-16) mg/dL Creatinine 0.94 (0.5-1.4) mg/dL Estim Creat Clear Calc 81.8 Estimated GFR > 60 Random Glucose 144 H (60-115) mg/dL Lactic Acid 1.0 (0.5-2.0) mmol/L Calcium 8.8 (8.4-10.2) mg/dL Total Bilirubin 0.7 (0.0-1.0) mg/dL AST 20 (5-37) U/L ALT 36 (0-40) U/L Alkaline Phosphatase 58 (39-117) U/L Total Protein 7.2 (6.5-8.0) g/dL Albumin 4.4 (3.5-5.0) g/dL COVID-19 (CARROLL) Negative (Negative) COVID-19 Clin Com See Note Influenza Type A (PARKER) Negative (Negative) Influenza Type B (PARKER) Negative (Negative) Influenza A & B Note See Note Independent Interpretation I performed an independent interpretation of an: EKG and CT Scan (CT/CT chest w IV con IMPRESSION: Unremarkable lungs. Numerous thyroid hypodensities are visible. Follow-up with nonemergent thyroid ultrasound There are changes in the thoracic spine consistent with diffuse idiopathic skeletal hyperostosis (DISH) Fleischner guidelines were followed.) Radiology Impression Discussion of test interpretation with radiology: I have reviewed the radiologist's reading. Critical Care Time Critical Care Time Critical Care Time: No Discharge Plan Discharge Clinical Impression: Bronchitis, Acute lumbar back pain Patient Disposition: Home, Self-Care Instructions: Acute Bronchitis (ED) Additional Instructions: Take your medications as prescribed. If you were prescribed antibiotics today, it is important that you take your medication to their entirety, do not skip any doses, do not finish them early. Follow-up with your primary care provider this week. Return to the emergency department with new or worsening symptoms. Such as fevers, chills, chest pain, shortness of breath, nausea, vomiting, dizziness, headache, vision changes, lethargy In case of emergency call 911 Toradol has been sent to your pharmacy, you tolerated this well in the department. Please take this as prescribed do not take this with ibuprofen, or other NSAIDs, do not mix this with alcohol. Side effects of this medication including increased risk for bleeding and possible kidney injury. CT/CT chest w IV con IMPRESSION: Unremarkable lungs. Numerous thyroid hypodensities are visible. Follow-up with nonemergent thyroid ultrasound There are changes in the thoracic spine consistent with diffuse idiopathic skeletal hyperostosis (DISH) Fleischner guidelines were followed. Prescriptions: New ketorolac 10 mg tablet 10 mg PO TID PRN (Reason: pain) 5 Days Qty: 15 0RF Rx Instructions: Tolerated IM or IV in department albuterol sulfate 90 mcg/actuation aerosol powdr breath activated 2 inh inhalation Q4-6H PRN (Reason: shortness of breath or wheezing) Qty: 1 0RF prednisone 20 mg tablet 40 mg PO DAILY 5 Days Qty: 10 0RF No Action budesonide-formoterol 160-4.5 mcg/actuation HFA aerosol inhaler 2 puff inhalation BID Referrals: Fernando Mirza MD [Primary Care Provider, Internal Medicine] Print Language: Mongolian
[2025-05-02 11:48] LABS: MANUAL DIFF FLAG NO
[2025-05-02 11:56] LABS: Hematocrit 48.3 % (42.0-52.0); Hemoglobin 16.8 g/dl (14.0-18.0); Imm Gran Abs Auto 0.24 X10*3/uL (0.00-0.03); Imm Gran Pct Auto 1.6 % (0.0-0.4); Lymphocytes Absolute Auto 2.8 X10*3/uL (1.2-4.9); Mean Corpuscular HGB Conc 34.8 g/dl (31.0-36.0); Mean Corpuscular Hemoglobin 29.8 pg (27.0-33.0); Mean Corpuscular Volume 85.8 fL (80.0-98.0); NRBC Abs Auto 0.000 X10*3/uL (0.0-0.012); NRBC Pct Auto 0.0 /100WBC (0.0-0.2); Platelet Count 172 X10*3/uL (160-400); Red Blood Count 5.63 X10*6/uL (4.60-5.80); White Blood Count 14.6 X10*3/uL (4.8-10.8)
[2025-05-02 11:58] LABS: INTERNATIONAL NORM RATIO 1.0 (0.9-1.1); Prothrombin Time 11.2 SEC (10.9-12.4)
[2025-05-02 12:05] LABS: Alanine Aminotransferase 36 U/L (0-40); Albumin Level 4.4 g/dL (3.5-5.0); Alkaline Phosphatase 58 U/L (39-117); Anion Gap 9 (12-20); Aspartate Amino Transferase 20 U/L (5-37); Blood Urea Nitrogen 13 mg/dL (9-16); Calcium 8.8 mg/dL (8.4-10.2); Carbon Dioxide 31 mmol/L (22-29); Chloride 105 mmol/L (96-108); Creatinine Clr Calc Pharmacy 81.8; Estimated Glomerular Filt Rate > 60; Potassium 4.1 mmol/L (3.3-5.1); Sodium 141 mmol/L (135-145); Total Protein 7.2 g/dL (6.5-8.0)
--- OUTSIDE RECORDS SUMMARY | 2025-05-02 13:45 | XMS_ITS | Clinical Summary ---
Author Organization [facility] Address [address] [place] [address] Phone Care Team Providers Care Outpatient Physical Therapist Name Role Phone Fernando Mirza MD Primary Care Provider [phone] Encounters Date Type Department Care Team Description 04/22/2025 Telephone Lung Screening Program - [place] [address] [facility] [address] [place] [phone] Zuri Ray MA from Last 3 Months [...] Description 05/09/2025 5:15 PM EDT Hospital Encounter [facility] CT Scan [address] [place] [phone] Health Maintenance Due Date Last Done Comments Colorectal Cancer Screening: Colonoscopy 1965 DTaP,Tdap,and Td Vaccines (1 - Tdap) 1984 Hepatitis B Vaccines (1 of 3 - 19+ 3-dose series) 1984 Pneumococcal Vaccine: 50+ Ye ars (1 of 1 - PCV) 2015 Zoster Vaccines (1 of 2) 2015 Cholesterol Screening (Lipid Panel) 07/03/2022 HIV Screening 07/03/2022 Hepatitis C Screening [...] to complete this topic Insurance Care Teams Outpatient Physical Therapist Relationship Specialty Start Date End Date Fernando Mirza MD PCP - General 09/28/10
--- OUTSIDE RECORDS SUMMARY | 2025-05-02 13:45 | XMS_ITS | Clinical Summary ---
Author Organization [facility] Address [address] [place] [address] Phone Care Team Providers Care Underground Mine Superintendent Name Role Phone Fernando Mirza MD Primary Care Provider [phone] Immunizations Immunization Administration Dates Next Due COVID-19 [...] - 2024-2 6 season) 2025 09/24/2020, 08/27/2020 RSV VACCINE (1 - 1-dose 75+ series) 2040 ZOSTER VACCINES Completed 08/03/2020, 06/20/2020 HEPATITIS A [...] topic Medical Devices Not on file Insurance [facility] [employer] [facility] [employer] [facility] [employer] [facility] [employer] [facility] [employer] [facility] [employer] [facility] [employer] [address] [address] ADMINISTRATORS [facility] [employer] Care Teams Underground Mine Superintendent Relationship Specialty Start Date End Date Fernando Mirza MD [address] [place] [id number] PCP - General Internal Medicine 08/25/20 Additional Source Comments The information contained in this document represents components of the legal health record. It is not the complete legal health record.[facility]
--- OUTSIDE RECORDS SUMMARY | 2025-05-02 13:45 | XMS_ITS | Clinical Summary ---
Author Organization [facility] Address [address] [place] [address] Care Team Providers Care Ophthalmology Assistant Name Role Phone Unavailable Primary Care Provider [...]
--- OUTSIDE RECORDS SUMMARY | 2025-05-02 13:45 | XMS_ITS | Patient Health Record ---
Author Organization [facility] Address [address] [place] [address] Care Team Providers Care Mural Painter Name Role Phone Yuki MARIE, Fernando Primary Care Provider Go Green Jr Unavailable [phone] Allergies No Known Allergies Results Component Value Reference Range Notes Pathology Reviewed date:10/15/2024 01:29:38 PM Interpretation: Performing Lab:[facility], [address] [place] [phone] Notes/Report: Reason For Referral No Information Medications [...] Problem Status W/U Status Risk Notes Problem 380972652 Colon cancer screening (Z12.11) Active confirmed Problem 27433964 Rectal bleeding (K62.5) Active confirmed Problem 96175339 Encounter for other preprocedural examination (Z01.818) Active confirmed Problem 307516497 Personal history of colonic polyps (Z86.0100) Active confirmed Vital Signs Blood pressure diastolic 00 mm Hg 08/29/2024 Height 67 in 08/29/2024 Blood pressure systolic 00 mm Hg 08/29/2024 Weight 210 lbs 08/29/2024 BMI 32.89 kg/m2 08/29/2024 Encounters Encounter Location Date Provider Diagnosis [facility] Out[facility] [address] [place], [place] [phone] 10/11/2024 Go Alegre Jr Colon cancer screening Z12.11 ; Personal history of adenomatous and serrated colon polyps Z86.0101 and Colon polyps K63.5 [facility] [address] [place] [phone] 08/29/2024 Go Alegre Jr Colon cancer screening Z12.11 ; Encounter for other preprocedural examination Z01.818 and Personal history of colonic polyps Z86.0100 [facility] [address] [place] [phone] 08/29/2024 Go Alegre Jr [facility] [address] [place] [phone] 09/02/2024 Go Alegre Jr [facility] [address] [place] [phone] 09/03/2024 Go Alegre Jr [facility] [address] [place] [phone] 10/15/2024 Go Candelarioifford Assessments Encounter Date Diagnosis [...] [employer] [address] [address] [place] [address] [id number] JEANNIE ELIZONDO Self - patient is the insured Medical (General) History Medical History History ICD Code Colonoscopy 06/18, tubular adenoma, five -year followup asthma hypertension Obstructive sleep apnea/CPAP Surgical History Surgery Date(Month/Year)
--- NOTE | 2025-05-02 14:00 | ECG_ITS ---
Test Reason : RESPIRATORY Blood Pressure : */* mmHG Vent. Rate : 72 BPM Atrial Rate : 72 BPM P-R Int : 166 ms QRS Dur : 86 ms QT Int : 372 ms P-R-T Axes : 51 26 42 degrees QTcB Int : 407 ms Normal sinus rhythm Normal ECG When compared with ECG of 17-Jun-2013 13:25, No significant change was found Referred By: Suleiman Patel Electronically Signed By: AIME CARBAJAL
[2025-05-02 14:11] LABS: COVID-19 Test Negative (Negative); IDNOW Serial# 08D9AD1C
[2025-05-02 14:19] LABS: IDNOW Serial# 6674DD1D; Influenza B2 Negative (Negative)
[2025-05-02 14:21] LABS: D Dimer High Sensitivity < 150 NG/ML
[2025-05-02 14:23] VITALS: BP 124/70; PULSE 70; RESP 18; TEMP 36.8; O2SAT 97
[2025-05-02] MEDS: iohexoL 350 MG/ML 100 ML INFUS..BTL IV (15:37)
[2025-05-02] MEDS: Magnesium Sulfate/H2O 2 GM/50 ML PIGGYBACK IV (16:07)
[2025-05-02 16:29] VITALS: BP 125/89; PULSE 86; RESP 18; O2SAT 98
[2025-05-02 18:03] LABS: Troponin-I High Sensitivity < 2.7 ng/L (<3.5-35.0)
[2025-05-02 18:38] VITALS: BP 106/79; PULSE 80; RESP 18; O2SAT 97; O2SAT 99
[2025-05-02 18:41] VITALS: BP 119/83; PULSE 83; RESP 15; TEMP 36.6; O2SAT 99
[2025-05-02 18:45] VITALS: BP 119/83; PULSE 83; RESP 15; TEMP 36.6; O2SAT 99
== END 2025-05-02 18:45 | disposition home or self-care (01) ==
PROVIDERS: Physician Assistant; Registered Nurse Emergency; Emergency Provider Emergency Medicine; PCP Internal Medicine
DX: J40 Bronchitis, not specified as acute or chronic (principal); M54.50 Low back pain, unspecified; R06.02 Shortness of breath; Z11.52 Encounter for screening for COVID-19; Z51.81 Encounter for therapeutic drug level monitoring; Z79.899 Other long term (current) drug therapy
CPT/HCPCS: 36415; 71260; 80053; 83605; 84484; 85025; 85379; 85610; 87040; 87502; 87635; 93005; 96365; 96366; 96375; 99285; J0696; J1885; J2919; J3475; Q9967

== ENCOUNTER → 2025-05-02 14:00 | Outpatient (BNV) | payer OTHER, SELFPAY | PROVIDERS: Emergency Provider Emergency Medicine; PCP Internal Medicine; Visit Provider Internal Medicine | DX: R06.02 Shortness of breath (principal) | CPT/HCPCS: 93010 ==

== ENCOUNTER → 2025-05-02 14:56 | Outpatient (BNV) | payer OTHER, SELFPAY | PROVIDERS: Emergency Provider Emergency Medicine; PCP Internal Medicine; Visit Provider Radiology Diagnostic Radiology | DX: R06.02 Shortness of breath (principal) | CPT/HCPCS: 71260 ==

== ENCOUNTER 2025-06-07 08:40 | Outpatient (REF) | payer OTHER, SELFPAY ==
--- OUTSIDE RECORDS SUMMARY | 2024-09-13 06:40 | XMS_ITS ---
Author Organization [facility] Address [address] [place] [address] Care Team Providers Care Loom Changer Name Role Phone Fernando Mirza MD Primary Care Provider Unavailab Go Martinez Jr Unavailable REASON FOR VISIT screening Encounters Encounter Location Date Provider Diagnosis [facility] [place] [address] [place] [phone] 09/13/2024 Go Alegre Jr Plan Of Treatment No Information Progress Notes * JEANNIE ELIZONDODOB:[birth year] (59 yo M)Acc No.[id number]:09/13/2024 COLON WITH MAC Patient: JEANNIE LANDRUM Provider: Frankie Alegre MD :1965 A ge:59 Y S ex:Male Date:09/13/2024 Address:[address] [place], [place] [phone] Pcp:Fernando Mirza MD Subjective: * Chief Complaints: * 1 . Screening. * Medical History: Objective: * Vitals: Assessment: Plan: * Treatment: * * The named appointment provid er may or may not be the originator of this progress note, and it is not deemed complete until electronically signed by the appointment provider. Sign off status: Pending * Provider: Frankie Alegre MD Date: 0 09/13/2024 Generated for Subhash bacon/Kathleen/eTbellsmitting on: 1 08/07/2024 08:43 AM EST
--- OUTSIDE RECORDS SUMMARY | 2024-10-11 08:20 | XMS_ITS ---
Author Organization [facility] Address [address] [place] [address] Care Team Providers Care Dietitian Helper Name Role Phone Fernando Mirza MD Primary Care Provider Unavailab Go Martinez Jr Unavailable REASON FOR VISIT screening Encounters Encounter Location Date Provider Diagnosis [facility] [place] [place] [address] [place] [phone] 10/11/2024 Go Alegre Jr Colon cancer screening Z12.11 ; Personal history of adenomatous and serrated colon polyps Z86.0101 and Colon polyps K63.5 Assessments Encounter Date Diagnosis (ICD Code) Assessment Notes Treatment Notes Treatment Clinical Notes Section Notes 10/11/2024 Colon cancer screening (ICD-10 - Z12.11) 10/11/2024 Personal history of adenomatous and serrated colon polyps (ICD-10 - Z86.0101) 10/11/2024 Colon polyps (ICD-10 - K63.5) Plan Of Treatment No Information Progress Notes * JEANNIE ELIZONDODOB:[birth year] (59 yo M)Acc No.[id number]:10/11/2024 COLON WITH MAC Patient: JEANNIE LANDRUM Provider: Frankie Alegre MD :1965 A ge:59 Y S ex:Male Date:10/11/2024 [facility] [address] [facility] [id number] Pcp:Fernando Mirza MD Subjective: * Chief Complaints: * 1 . Screening. * Medical History: Objective: * Vitals: Assessment: * Assessment: 1. C olon cancer screening - Z12.11 (Primary) 2 . P ersonal history of adenomatous and serrated colon polyps - Z86.0101 3 . C olon polyps - K63.5 ? Plan: * Treatment: * Procedure Codes: 4 5385 LESION REMOVAL COLONOSCOPY, 20018 COLONOSCOPY AND BIOPSY, Modifiers: 59 , 0529F INTRVL 3+YRS PTS CLNSCP DOCD * * The named appointment provid er may or may not be the originator of this progress note, and it is not deemed complete until electronically signed by the appointment provider. Sign off status: Pending * Provider: Frankie Alegre MD Date: 0 10/11/2024 Generated for Subhash bacon/Kathleen/Darronitting on: 1 08/07/2024 08:44 AM EST
--- OUTSIDE RECORDS SUMMARY | 2025-04-22 08:08 | XMS_ITS ---
Author Organization [facility] Address [address] [place] [phone] Care Team Providers Care Technical Professional Name Role Phone ELISABETH DESOUZA Primary Care Provider RESULTS Component Value Reference Range Notes XR Chest 2 views Reviewed date:04/26/2025 08:57:46 AM Interpretation: Performing Lab: Notes/Report: REASON FOR VISIT (2) still coughing MEDICATIONS Medication SIG (Take, Route, Fr equency, Duration) Notes Start Date End Date Status Benzonatate 100 MG 1 capsule as needed Orally Three times a day for 10 days 04/02/2025 Active Encounters Encounter Location Date Provider Diagnosis [address] [address] 04/22/2025 ELISABETH DESOZUA Acute cough R05.1 ASSESSMENTS Encounter Date Diagnosis Assessment Notes Treatment Notes Treatment Clinical Notes Section Notes 04/22/2025 Acute cough (ICD-10 - R05.1) PLAN OF TREATMENT Medication Medication Name Sig Start Date Stop Date Notes Benzonatate 100 MG 1 capsule as needed Orally Three times a day for 10 days 04/02/2025 Next Appt Details Provider Name:ELISABETH DESOUZA , 08/25/2025 03:15:00 PM, [address] [place] [address], [phone], Provider Name:ELISABETH DESOUZA , 05/21/2026 03:30:00 PM, [address] [place] [address], [phone],
--- OUTSIDE RECORDS SUMMARY | 2025-04-24 10:24 | XMS_ITS ---
Author Organization [facility] Address [address] [place], [place] [id number] Care Team Providers Care Drum Printer Name Role Phone ELISABETH DESOUZA Primary Care Provider REASON FOR VISIT (2)AF-04/24/25) cxr results/ cough not better Encounters Encounter Location Date Provider Diagnosis [address] [phone] 04/24/2025 ELISABETH DESOUZA PLAN OF TREATMENT Next Appt Details Provider Name:ELISABETH DESOUZA , 08/25/2025 03:15:00 PM, [address] [place] [address], [phone], Provider Name:ELISABETH DESOUZA , 05/21/2026 03:30:00 PM, [address] [place] [address], [phone],
--- OUTSIDE RECORDS SUMMARY | 2025-04-25 09:30 | XMS_ITS ---
Author Organization [facility] Address [address] [place], [place] [phone] Care Team Providers Care Detective Automobile Section Name Role Phone ELISABETH DESOUZA Primary Care Provider ALLERGIES No Known Allergies REASON FOR VISIT prolonged cough MEDICATIONS Medication SIG (Take, Route, Frequency, Duration) Notes Start Date End Date Status Benzonatate 100 MG 1 capsule as needed Orally Three times a day for 10 days 04/02/2025 Active Budesonide-Formoterol Fumarate 160-4.5 MCG/ACT 2 puffs Inhalation Twice a day Active guaiFENesin-Codeine 200-10 MG/5ML 5 mL as needed Orally every 12 hrs for 10 days 04/25/2025 Active predniSONE 10 MG 6 tablets Orally gissel ly x 2 days, then 5 po daily x 2 days then 4 po daily x 2 days then 3 po daily x 2 days then 2 po daily x 2 days then 1 po daily x 2 days for 12 days 04/21/2025 Active Doxycycline Hyclate 100 MG 1 tablet Oral ly twice a day for 10 day(s) 04/21/2025 Active Albuterol Sulfate HFA 108 (90 Base) MCG/ACT 2 puffs as needed Inhalation qid 05/08/2024 Active Cefpodoxime Proxetil 200 MG 1 tablet wit h food Orally every 12 hrs for 7 day(s) 04/25/2025 Active SOCIAL HISTORY Tobacco Use: Social History Observation Description Date Details (start date - stop date) Current Smoker NA - NA Sex Assigned At : Social History Observation Description Sex Assigned At Unknown Smoking Question Answer Notes Are you a: current smoker How often do you smoke Cigarettes? every day How many cigarettes a day do you smoke? 6-10 VITAL SIGNS Blood pressure systolic 128 mm Hg 04/25/20 25 Blood pressure diastolic 84 mm Hg 025 Height 68.50 in 04/25/2025 Weight 98.2 lbs 04/25/2025 BMI 14.71 kg/m2 04/25/2025 Encounters Encounter Location Date Provider Diagnosis [facility] [address] [place] [phone] 04/25/2025 ELISABETH DESOUZA Community acquired pneumonia of right middle lobe of lung J18.9 ASSESSMENTS Encounter Date Diagnosis Assessment Notes Treatment Notes Treatment Clinical Notes Section Notes 04/25/2025 Community acquired pneumonia of right middle lobe of lung (ICD-10 - J18.9) 1. Pneumonia: Right middle lobe and right base airspace disease seen on x-ray. CAT scan recommended to rule out underlying lesion. Will add cefpodoxime to current therapy and Robitussin with codeine for sleep. He will keep me apprised of his progress. I once again emphasized the need for smoking cessation PLAN OF TREATMENT Medication Medication Name Sig Start Date Stop Date Notes guaiFENesin-Codeine 200-10 MG/5ML 5 mL as needed Orally every 12 hrs for 10 days 04/25/2025 Cefpodoxime Proxetil 200 MG 1 tablet wit h food Orally every 12 hrs for 7 day(s) 04/25/2025 Pending Test Test Name Order Date CT Chest without IV contrast 04/25/2025 Next Appt Details Provider Name:ELISABETH DESOUZA , 08/25/2025 03:15:00 PM, [address] [place] [address], [phone], Provider Name:ELISABETH DESOUZA , 05/21/2026 03:30:00 PM, [address] [place] [address], [phone], Progress Notes * Examination Category Sub-Category Detail Notes Category Not es General Examination Heart: RSR, normal S1S2 Lungs: Diffuse rhonchi, gre ater on the right side Extremities: no edema General Appearance no apparent distress , pleasant Psych: alert, oriented X 3 Other normal affect History and Physical Notes * HPI (History of Present Illness) Category Sub-Category Detail Notes Category Not es General Patient present s for persistent cough and asthma symptoms. He is feeling poorly and does not feel the current medicine has improved his symptoms. He has been taking doxycycline and prednisone faithfully along with his inhalers. He is raising some phlegm but cough is persistent and keeping him up at night. We reviewed his chest x-ray results which show pneumonia
--- OUTSIDE RECORDS SUMMARY | 2025-04-25 09:53 | XMS_ITS ---
Author Organization [facility] Address [address] [place], [place] [id number] Care Team Providers Care Microsoft Exchange Administrator Name Role Phone ELISABETH DESOUZA Primary Care Provider MEDICATIONS Medication SIG (Take, Route, Frequency, Duration) Notes Start Date End Date Status guaiFENesin-Codeine 200-10 MG/5ML 5 mL as needed Orally every 12 hrs for 10 days 04/25/2025 Active Encounters Encounter Location Date Provider Diagnosis [address] [phone] 04/25/2025 ELISABETH DENNISONFORD Community acquired pneumonia of right middle lobe of lung J18.9 ASSESSMENTS Encounter Date Diagnosis Assessment Notes Treatment Notes Treatment Clinical Notes Section Notes 04/25/2025 Community acquired pneumonia of right middle lobe of lung (ICD-10 - J18.9) PLAN OF TREATMENT Medication Medication Name Sig Start Date Stop Date Notes guaiFENesin-Codeine 200-10 MG/5ML 5 mL as needed Orally every 12 hrs for 10 days 04/25/2025 Next Appt Details Provider Name:EILSABETH DESOUZA , 08/25/2025 03:15:00 PM, [address] [place] [address], [phone], Provider Name:ELISABETH Nimisha DENNISONLYLY , 05/21/2026 03:30:00 PM, [address] [place] [address], [phone],
--- OUTSIDE RECORDS SUMMARY | 2025-04-29 05:32 | XMS_ITS ---
Author Organization [facility] Address [address] [place], [place] [id number] Care Team Providers Care High Reach Operator Name Role Phone ELISABETH DESOUZA Primary Care Provider [phone] REASON FOR VISIT (2) still has cough and SOB Encounters Encounter Location Date Provider Diagnosis [address] [address] 04/29/2025 ELISABETH DESOUZA PLAN OF TREATMENT Next Appt Details Provider Name:ELISABETH DESOUZA , 08/25/2025 03:15:00 PM, [address] [place] [address], [phone], Provider Name:ELISABETH DESOUZA , 05/21/2026 03:30:00 PM, [address] [place] [address], [phone],
--- OUTSIDE RECORDS SUMMARY | 2025-05-01 10:41 | XMS_ITS ---
Author Organization [facility] Address [address] [place], [place] [id number] Care Team Providers Care Triage Register Nurse Name Role Phone ELISABETH DESOUZA Primary Care Provider REASON FOR VISIT (FYI) Work Note Encounters Encounter Location Date Provider Diagnosis [address] [address] 05/01/2025 ELISABETH DESOUZA PLAN OF TREATMENT Next Appt Details Provider Name:ELISABETH DESOUZA , 08/25/2025 03:15:00 PM, [address] [place] [address], [phone], Provider Name:ELISABETH DESOUZA , 05/21/2026 03:30:00 PM, [address] [place] [address], [phone],
--- OUTSIDE RECORDS SUMMARY | 2025-05-05 09:33 | XMS_ITS ---
Author Organization [facility] Address [address] [place], [place] [phone] Care Team Providers Care Nuclear Medicine Specialist Name Role Phone ELISABETH DESOUZA Primary Care Provider RESULTS Component Value Reference Range Notes US Thyroid Reviewed date:06/06/2025 04:49:49 PM Interpretation: Performing Lab: Notes/Report: REASON FOR VISIT work note PROBLEMS Problem Type ICD Code Onset Dates Problem Status W/U Status Risk SNOMED Code Notes Problem Multiple thyroid nodules (E04.2) Active confirmed [id number] Encounters Encounter Location Date Provider Diagnosis [address] [phone] 05/05/2025 ELISABETH DESOUZA Multiple thyroid nodules E04.2 ASSESSMENTS Encounter Date Diagnosis Assessment Notes Treatment Notes Treatment Clinical Notes Section Notes 05/05/2025 Multiple thyroid nodules (ICD-10 - E04.2) PLAN OF TREATMENT Next Appt Details Provider Name:ELISABETH DESOUZA , 08/25/2025 03:15:00 PM, [address] [place] [address], [phone], Provider Name:ELISABETH DESOUZA , 05/21/2026 03:30:00 PM, [address] [place] [address], [phone],
--- OUTSIDE RECORDS SUMMARY | 2025-05-14 10:45 | XMS_ITS ---
Author Organization [facility] Address [address] [place], [place] [id number] Care Team Providers Care Maintenance Porter Name Role Phone ELISABETH DESOUZA Primary Care Provider ALLERGIES No Known Allergies RESULTS Component Value Reference Range Notes EKG Reviewed date:05/19/2025 09:18:19 AM Interpretation: Performing Lab: Notes/Report: ECGDiastolicBP ECGHr ECGPRInterval ECGPWaveAxis ECGQRSDuration ECGQrsWaveAxis ECGQTcInterval ECGQTInterval ECGSystolicBP ECGTWaveAxis RR_DiastolicBP RR_MaxRRInterval RR_MeanHR RR_MeanRRInterval RR_MinRRInterval RR_NumBeats RR_NumNormalBeats RR_SystolicBP REASON FOR VISIT CPX, would like flu [...] smoke? 6-10 VITAL SIGNS Blood pressure systolic 132 mm Hg 05/14/20 25 Blood pressure diastolic 86 mm Hg 025 Height 67.50 in 05/14/2025 Weight 203.2 lbs 05/14/2025 BMI 31.35 kg/m2 05/14/2025 Encounters Encounter Location Date Provider Diagnosis [facility] [address] [place] [address] 05/14/2025 [facility] Encounter for genera l adult medical examination [...] abnormal findings (ICD-10 - Z00.00) 1. RHCM: [place] was done last yesr - report not [...] Multiple thyroid nodules seen on CT at [facility]. Thyroid ultrasound is pending 6. Flu shot given today 7. Tobacco use: Called in NicoDerm patches 05/14/2025 Essential (primary) hypertension (ICD-10 - I10) 1. RHCM: [place] was done last yesr - report not [...] Multiple thyroid nodules seen on CT at [facility]. Thyroid ultrasound is pending 6. Flu shot given today 7. Tobacco use: Called in NicoDerm patches 05/14/2025 Chronic obstructive pulmonary disease, unspecified COPD type (ICD-10 - J44.9) 1. RHCM: [place] was done last yesr - report not [...] Multiple thyroid nodules seen on CT at [facility]. Thyroid ultrasound is pending 6. Flu shot given today 7. Tobacco use: Called in NicoDerm patches 05/14/2025 Obstructive sleep apnea syndrome (ICD-10 - G47.33) 1. RHCM: [place] was done last yesr - report not [...] Multiple thyroid nodules seen on CT at [facility]. Thyroid ultrasound is pending 6. Flu shot given today 7. Tobacco use: Called in NicoDerm patches 05/14/2025 Multiple thyroid nodules (ICD-10 - E04.2) 1. RHCM: [place] was done last yesr - report not [...] Multiple thyroid nodules seen on CT at [facility]. Thyroid ultrasound is pending 6. Flu shot given today 7. Tobacco use: Called in NicoDerm patches 05/14/2025 Encounter for immunization (ICD-10 - Z23) Influenza vaccine administered. VIS sheet given. Patient counseled and questions answered. 1. RHCM: [place] was done last yesr - report not [...] Multiple thyroid nodules seen on CT at [facility]. Thyroid ultrasound is pending 6. Flu shot given today 7. Tobacco use: Called in NicoDerm patches 05/14/2025 Tobacco use (ICD-10 - Z72.0) 1. RHCM: [place] was done last yesr - report not [...] Multiple thyroid nodules seen on CT at [facility]. Thyroid ultrasound is pending 6. Flu shot [...] Test Test Name Order Date Prostate-Specific Ag (PSA)-[id number] 2024 CBC, Platelet, w/o [id number] 1 QuantiFERON-TB Gold Plus-[id number] 05/14/20 25 Lipid Panel-[id number] 05/14/2025 TSH Rfx on Abnormal to Free [id number] Comp. Metabolic Panel [id number] 2024 Next Appt Details Provider Name:ELISABETH DESOUZA , 08/25/2025 03:15:00 PM, [address] [facility], [place], [phone], Provider Name:ELISABETH DESOUZA , 05/21/2026 03:30:00 PM, [address] [facility], [place], [phone], Progress Notes * Examination Category Sub-Category Detail [...]
--- OUTSIDE RECORDS SUMMARY | 2025-05-14 10:53 | XMS_ITS ---
Author Organization [facility] Address [address] [place], [place] [id number] Care Team Providers Care Automatic Dispenser Mechanic Name Role Phone ELISABETH DESOUZA Primary Care Provider [phone] REASON FOR VISIT (AF-05/14/25) [place] Encounters Encounter Location Date Provider Diagnosis [address] [address] 05/14/2025 ELISABETH DESOUZA PLAN OF TREATMENT Next Appt Details Provider Name:ELISABETH DESOUZA , 08/25/2025 03:15:00 PM, [address] [place] [address], [phone], Provider Name:ELISABETH DESOUZA , 05/21/2026 03:30:00 PM, [address] [place] [address], [phone],
--- OUTSIDE RECORDS SUMMARY | 2025-06-06 11:49 | XMS_ITS ---
Author Organization [facility] Address [address] [place], [place] [id number] Care Team Providers Care Business Excellence Manager Name Role Phone ELISABETH DESOUZA Primary Care Provider REASON FOR VISIT Thyroid ultrasound Encounters Encounter Location Date Provider Diagnosis [address] [address] 06/06/2025 ELISABETH DESOUZA PLAN OF TREATMENT Next Appt Details Provider Name:ELISABETH DESOUZA , 08/25/2025 03:15:00 PM, [address] [place] [address], [phone], Provider Name:ELISABETH DESOUZA , 05/21/2026 03:30:00 PM, [address] [place] [address], [phone],
--- OUTSIDE RECORDS SUMMARY | 2025-06-07 08:43 | XMS_ITS | Patient Health Record ---
Author Organization [facility] Address [address] [place] [address] Care Team Providers Care Information Clerk Brokerage Name Role Phone Yuki MARIE, Fernando Primary Care Provider Go Green Jr Unavailable [phone] Allergies No Known Allergies Results Component Value Reference Range Notes Pathology Reviewed date:10/15/2024 01:29:38 PM Interpretation: Performing Lab:[facility], [address] [place] [phone] Notes/Report: Reason For Referral No Information Medications Medication SIG (Take, Route, Frequency, Duration) Notes Start Date End Date Status MiraLax (colon prep) 8.3 ounce ((238) grams mixed with Gatorade or Crystal Light orally begin at 5:00 p.m. the day before the procedure; Duration: 1 day 08/30/2024 Active Dulcolax (colon prep) 5 MG take at 3:00 p.m and 7:00p.m. Orally two tablets twice a day for one day; Duration: 1 day 08/30/2024 Active MiraLax (colon prep) 17 GM/SCOOP mixed with Gatorade or Crystal Light Orally begin at 5:00 p.m. the day before the procedure; Duration: 1 day 08/29/2024 Active Immunizations Vaccine Route [...] Problem Status W/U Status Risk Notes Problem Colon cancer screening (463740100) Colon cancer screening (Z12.11) Active confirmed Problem Rectal bleeding (59855932) Rectal bleeding (K62.5) Active confirmed Problem Pre-procedure evaluation check (681248895) Encounter for other preprocedural examination (Z01.818) Active confirmed Problem History of polyp of colon (situation) (954042940) Personal history of colonic polyps (Z86.0100) Active confirmed Vital Signs Blood pressure diastolic 00 mm Hg 08/29/2024 Height 67 in 08/29/2024 Blood pressure systolic 00 mm Hg 08/29/2024 Weight 210 lbs 08/29/2024 BMI 32.89 kg/m2 08/29/2024 Encounters Encounter Location Date Provider Diagnosis [facility] Out[facility] [address] [place], [place] [phone] 10/11/2024 Go Alegre Jr Colon cancer screening Z12.11 ; Personal history of adenomatous and serrated colon polyps Z86.0101 and Colon polyps K63.5 [facility] [address] [place] [phone] 08/29/2024 Go Alegre Jr Colon cancer screening Z12.11 ; Encounter for other preprocedural examination Z01.818 and Personal history of colonic polyps Z86.0100 [facility] [address] [place] [phone] 08/29/2024 Go Alegre Jr [facility] [address] [place] [phone] 09/02/2024 Go Alegre Jr [facility] [address] [place] [phone] 09/03/2024 Go Alegre Jr [facility] [address] [place] [address] 10/15/2024 Go Alegre Jr Assessments Encounter Date Diagnosis (ICD Code) Assessment [...] Coverage End Date [employer] [place] [address] [address] [place] [address] [id number] JEANNIE ELIZONDO Self - patient is the insured Medical (General) History Medical History History ICD Code Colonoscopy 06/18, tubular adenoma, five -year followup asthma hypertension Obstructive sleep apnea/CPAP Surgical History Surgery Date(Month/Year)
--- OUTSIDE RECORDS SUMMARY | 2025-06-07 08:43 | XMS_ITS | Data Portability ---
Author Organization [facility] Address [address] [address] Care Team Providers Care Home Coordinator Name Role Phone ELISABETH DESOUZA Primary Care Provider Assessment Encounter Date Assessment Date Assessment LastModified by Organization Details LastModified Time 01/28/2019 01/28/2019 Ruddy Nguyen is a 53 year old man with low back pain radiating into left lower extremity with numbness . On exam ,he has pain on flexion. Straight leg raising test is positive on the left. MRI Lumbar spine shows Mild retro subluxation , posterior disc bulge and left paracentral to subarticular disc protrusion at L4-5 impinging upon the left L5 nerve root. Mild anterolisthesis at L5-S1 with chronic L5 pars defect. Mild spondylosis at L3-4 level with mild foraminal narrowing. . Trial of Lumbar epidural steroid injection at L4-5 level under fluoroscopic guidance was recommended. The risks and benefits of the procedure were discussed in detail. He wishes to proceed. An appointment has been booked for the same. He needs a frontload driver on the day of the procedure. [email or web address] Not available 01/28/2019 14:40:02 02/05/2019 02/05/2019 Ruddy Nguyen is a 53 year old man with low back pain radiating into left lower extremity with numbness . On exam ,he has pain on flexion. Straight leg raising test is positive on the left. MRI Lumbar spine shows Mild retro subluxation , posterior disc bulge and left paracentral to subarticular disc protrusion at L4-5 impinging upon the left L5 nerve root. Mild anterolisthesis at L5-S1 with chronic L5 pars defect. Mild spondylosis at L3-4 level with mild foraminal narrowing. He is here for a trial of Lumbar epidural steroid injection at L4-5 level under fluoroscopic guidance . The risks and benefits of the procedure were discussed in detail. He wishes to proceed. He needs to follow up in four weeks. renita Not available 02/06/2019 14:35:28 Plan of Treatment Reminders Order Date Submit Date Provider Last Modified By Organization Details Last Modified Time Details Appointments None record ed. Lab None record ed. Referral None record ed. Procedures None record ed. Surgeries None record ed. Imaging None record ed. Medication Orders None record ed. Patient TargetsNo targets recorded. Patient InstructionsNo instructions recorded. Reason for Referral None Reported. Problems Name Problem SNOMED Code Status Onset Date Resolution Date Notes Provider Name and Address Organization Details Recorded Time Degeneration of lumbar intervertebral disc 22265095 Active Freda nelson MD [address] [facility] , [address], [place], [address], [facility] 9 10:37:21 Lumbar radiculopathy 978667341 Active Freda nelson MD [address] [facility] , [address], [place], [address], [place] [facility] 9 10:37:32 Spinal stenosis of lumbar region 54514740 Active Freda nelson MD [address] [facility] , [address], [place], [address], [place] [facility] 9 10:37:53 Problem Notes None recorded. Procedures Surgical History Date Name Laterality Status Provider Name and Address Organization Details Recorded Time 02/06/20 19 Lumbar Epidural steroid injection under fluoroscopic guidance completed Freda Jordan MD [address] [facility] , [address], [place], [address], [facility] 02/06/2019 14:29:37 Other completed Sheree Pierce [place] [facility] 01/28/2019 14:20:14 Imaging Results None recorded. Procedure Notes None recorded. Medical Equipment None Reported. Allergies No known drug allergies Medications Name Sig Start Date Stop Date Status Note LastModified by Organization Details LastModified Time dexamethaso ne 4 mg tablet TAKE 1 TABLET BY MOUTH 3 TIMES A DAY 01/28 completed Not Available Not Available Not Available nicotine 21 mg/24 hr daily transdermal patch APPLY 1 PATCH TOPICALLY EVERY DAY AND REMOVE AT BEDTIME 02/05 completed Not Available Not Available Not Available hydrochloro thiazide 25 mg tablet TAKE 1 TABLET BY MOUTH EVERY DAY active Not Available Not Available No t Available methylpredn isolone 4 mg tablets in a dose pack FOLLOW DIRECTION S ON PACKAGE 01/28 completed Not Available Not Available Not Available doxycycline hyclate 100 mg tablet TAKE 1 TABLET BY MOUTH TWICE A DAY 01/28 completed Not Available Not Available Not Available Vitals Date Recorded Heart rate Oxygen saturation Oxygen saturation in Arterial blood by Pulse oximetry Systolic And Diastolic Provider Name and Address Organization Details Last Updated DateTime 01/28/2019 89 /min 98 % 98 % 128/83 mm[Hg] Sheree Pierce [place] [facility] 9 13:58:48 Date Recorded Heart rate Oxygen saturation Oxygen saturation in Arterial blood by Pulse oximetry Systolic And Diastolic Provider Name and Address Organization Details Last Updated DateTime 02/05/2019 80 /min 97 % 97 % 121/78 mm[Hg] Sheree Pierce [place] [facility] 9 15:17:28 Social History Question Answer Notes LastModified by [email or web address] Details LastModified Time Tobacco Smoking Status Current Every Day [facility]oker Not [facility] 05/15/2020 03:16:11 Which Illicit Or Recreational Drugs Have You Used? No [id number] Information not available 05/15/2020 Education 12 Information no t available 01/28/2019 Live Alone Or With Others? With Others Girlfriend Information not available 01/28/2019 Marital Status Single Informatio n not available 01/28/2019 What Was The Date Of Your Most Recent Tobacco Screening? 02/06/2019 [id number] Information not available 05/15/2020 How Much Tobacco Do You Smoke? 1 PPD [id number] Information not available 05/15/2020 How Many Years Have You Smoked Tobacco? 35 [id number] Information not available 05/15/2020 Sex: Unknown Functional Status Question Answer Note LastModified by [email or web address] Details LastModified Time What is your level of alcohol consumption? 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 Family History Relationship Description Onset Age of this Age Resolved Age Notes LastModified by Organization Details LastModified Time Father No current problems or disability Not available 01/28 14:02:34 Mother No current problems or disability Not available 01/28 14:02:34 Medical History No medical history recorded. Past Encounters Encounter ID Performer Location Encounter Start Date Encounter Closed Date Diagnosis/Indication Diagnosis SNOMED-CT Code Diagnosis ICD10 Code Diagnosis IMO Codes Diagnosis Note [id number] Freda Jordan MD PAIN OFFICE [address] [place] [address] 01/28/2019 13:32:54 01/28/2019 14:40:47 Lumbar radiculopathy 359638893 M54.16 Degenerati on of lumbar intervertebral disc 09291988 M51.36 Spinal junior nosis of lumbar region 54827172 M48.061 [id number] Freda Jordan MD PAIN OFFICE [address] [place] [address] 02/05/2019 14:40:37 02/06/2019 14:38:09 Lumbar radiculopathy 164297543 M54.16 Degenerati on of lumbar intervertebral disc 73307374 M51.36 Spinal junior nosis of lumbar region 73430665 M48.061 Health Concerns Section Related Observation LastModified by Organization Detai ls LastModified Time None Recorded Concern Status LastModified by Organization Details LastModified Time None Recorded Advance Directives Directive None Recorded Payers Insurance Date Sequence Insurance Name Policy Number Policy Heller Covered Member ID Heller Member ID Guarantor Name 01/25/2019 1 [place] ELIE Nguyen [id number] Ruddy Nguyen 01/25/2019 1 [place] Ruddy Nguyen [id number] Ruddy Nguyen 03/09/2019 1 [place] [id number] Ruddy Nguyen [id number] Ruddy Nguyen 01/25/2019 1 [place] Ruddy Nguyen [id number] Ruddy Nguyen Notes Date Note Type Note Provider Name and Address Organization Details Recorded Time 01/28/2019 text/html Ruddy Nguyen is a 53 year old man with complaints of low back pain radiating into left lower extremity. The pain started about 6 months ago. He believes the pain started after a slip and fall. He started to have severe pain radiating into both lower extremities, left is greater than right. He describes the pain as a shooting pain , sharp from his left buttock region to the left leg . Current pain level is 5-10/10. Pain is aggravated by standing and walking . Pain is relieved with rest. He has no history of bladder or bowel incontinence.MRI Lumbar spine shows Mild retro subluxation , posterior disc bulge and left paracentral to subarticular disc protrusion at L4-5 impinging upon the left L5 nerve root. Mild anterolisthesis at L5-S1 with chronic L5 pars defect. Mild spondylosis at L3-4 level with mild foraminal narrowing.He has trialed physical therapy at [facility] with some pain benefit. Freda Jordan MD [address] [facility] , [address], [place], [address], [facility] 01/28/2019 15:20:12 02/05/2019 text/html He is here today for a lumbar epidural steroid injection under fluoroscopic guidance. Freda Jordan MD [address] [facility] , [address], [place], [address], [facility] 02/07/2019 09:56:01
--- OUTSIDE RECORDS SUMMARY | 2025-06-07 08:43 | XMS_ITS | Clinical Summary ---
Author Organization [facility] Address [address] [place] [address] Care Team Providers Care Head Filter Tank Tender Helper Name Role Phone Unavailable Primary Care Provider [...] of 2) 2015 COVID-19 Vaccine ( - 2024-2 6 season) 2025 Influenza (#1) 2025 RSV (1 - 1-dose 75+ series) 2040 HPV Vaccine (No Doses Required) Completed Hep A Aged Out No longer eligi ble based on patient's age to complete this topic Hib Aged Out No longer eligi ble based on patient's age to complete this topic Meningococcal ACWY Aged Out No longer eligible based on patient's age to complete this topic
--- OUTSIDE RECORDS SUMMARY | 2025-06-07 08:44 | XMS_ITS | Clinical Summary ---
Author Organization [facility] Address [address] [place] [phone] Phone Care Team Providers Care Sailor Name Role Phone Fernando Mirza MD Primary Care Provider [phone] Immunizations Immunization Administration Dates Next Due COVID-19 [...] topic Medical Devices Not on file Insurance [place] [employer] [facility] TCAS Online BENEFITS ADMINISTRATORS [facility] TC[employer] Online [facility] ADMINISTRATORS [facility] [employer] Online B[employer]EFITS ADMIN[employer]ATORS [facility] BLUE B[employer]EFITS ADMINISTRATORS Care Teams Sailor Relationship Specialty Start Date End Date Fernando Mirza MD [address] [place] [address] PCP - General Internal Medicine 08/25/20 Additional Source Comments The information contained in this document represents components of the legal health record. It is not the complete legal health record.[facility]
--- OUTSIDE RECORDS SUMMARY | 2025-06-07 08:44 | XMS_ITS | Patient Health Record ---
Author Organization [facility] Address [address], [place] [id number] Care Team Providers Care Wig Sales Consultant Name Role Phone ELISABETH DESOUZA Primary Care Provider ALLERGIES No Known Allergies REASON FOR REFERRAL No Information MEDICATIONS Medication SIG (Take, Route, Frequency, Duration) Notes Start Date End Date Status Nicoderm CQ 21 MG/24HR 1 patch to skin Transdermal Once a day for 42 days 05/14/2025 Active Budesonide-Formoterol Fumarate 160-4.5 MCG/ACT 2 puffs Inhalation Twice a day Active Albuterol Sulfate HFA 108 (90 Base) MCG/ACT 2 puffs as needed Inhalation qid 05/08/2024 Active IMMUNIZATIONS Vaccine Route Administration Date Status Comme nts Zoster recombinant Unknown 05/14/2020 Administered Zoster recombinant Unknown 08/03/2020 Administered [facility]vs Gynesonicso chaudhry [id number] Td (Tetanus Diphtheria) Unknown 07/06/2004 Administered Moderna COVID-19 mRNA LNP-S PF Unknown 08/25/2020 Administered Moderna COVID-19 mRNA LNP-S PF Unknown 09/24/2020 Administered Moderna COVID-19 mRNA LNP-S PF Unknown 07/19/2021 Administered h21a Influenza, Flublok IM Intramuscular 05/08/2024 Administere d Influenza, Flublok IM Intramuscular 05/14/2025 Administere d [...] cigarettes a day do you smoke? 6-10 PROBLEMS Problem Type ICD Code Onset Dates Problem Status W/U Status Risk SNOMED Code Notes Problem Essential (primary) hypertension (I10) Active confirmed 21962695 Problem Other obesity due to excess calories (E66.09) Active confirmed 305591602 Problem Mixed hyperlipidemia (E78.2) Active confirmed 269547004 Problem Obstructive sleep apnea syndrome (G47.33) Active confirmed 44301845 Problem Moderate persistent asthma without complication (J45.40) Active confirmed 533719591 Problem Moderate persistent asthma with acute exacerbation (J45.41) Active confirmed 181332420 Problem Chronic obstructive pulmonary disease, unspecified COPD type (J44.9) Active confirmed 97963689 Problem Multiple thyroid nodules (E04.2) Active confirmed 796733051 Problem Insomnia, unspecified type (G47.00) Active confirmed 912780641 Problem Anxiety, generalized (F41.1) Active confirmed 11578242 Problem Acute non-recurrent frontal sinusitis (J01.10) Active confirmed 08762507 Problem Body mass index [BMI] 31.0-31.9, adult (Z68.31) Active confirmed 173480447 Problem Obesity, class 1 (E66.811) Active confirmed 045774911 VITAL SIGNS Blood pressure diastolic 86 mm Hg 05/14/2025 Height 67.50 in 05/14/2025 Blood pressure systolic 132 mm Hg 05/14/2025 Weight 203.2 lbs 05/14/2025 BMI 31.35 kg/m2 05/14/2025 Encounters Encounter Location Date Provider Diagnosis [address] [address] 06/18/[address] [address] 06/18/2024 ELISABETH GHENT Upper respiratory virus J06.[address] [address] 06/19/[address] [address] 06/19/2024 ELISABETH DENNISONFORD Acute cough R05.[address] [address] 07/03/2024 ELISABETH DESOUZA Moderate persistent asthma with acute exacerbation J45.41 [facility] [address] [place] [address] 11/06/2024 [facility] Chronic obstructive pulmonary disease, unspecified COPD type J44.9 ; Tobacco use Z72.0 ; Right flank pain R10.9 and Obstructive sleep apnea syndrome G47.33 [facility] [address] [place] [address] 11/13/2024 [facility] [address] [place] [address] 11/13/2024 [facility] Moderate persistent asthma with acute exacerbation J45.41 and Acute cough R05.1 [facility] [address] [place] [address] 03/25/2025 [facility] [address] [place] [address], [place] [address] 03/25/2025 [facility] Moderate persistent asthma without complication J45.40 [facility] [address] [place] [address] 03/31/2025 [facility] [address] [place] [address], [place] [address] 04/02/2025 [facility] [address] [place] [address], [place] [address] 04/02/2025 [facility] Moderate persistent asthma without complication J45.40 and Acute cough R05.1 [facility] [address] [place] [address], [place] [address] 04/21/2025 [facility] Moderate persistent asthma with acute exacerbation J45.41 and Acute non-recurrent frontal sinusitis J01.10 [facility] [address] [place] [address] 04/22/2025 [facility] Acute cough R05.1 [facility] [address] [place] [address], [place] [address] 04/24/2025 [facility] [address] [place] [address] 04/25/2025 [facility] Community acquired pneumonia of right middle lobe of lung J18.9 [facility] [address] [place] [address] 04/25/2025 [facility] Community acquired pneumonia of right middle lobe of lung J18.9 [facility] [address] [place] [address], [place] [address] 04/29/2025 [facility] [address] [place] [address] 05/01/2025 [facility] [address] [place] [address] 05/05/2025 [facility] Multiple thyroid nodules E04.[address] [address] 05/14/2025 [facility] Encounter for genera l adult medical examination without abnormal findings Z00.00 ; Essential (primary) hypertension I10 ; Chronic obstructive pulmonary disease, unspecified COPD type J44.9 ; Obstructive sleep apnea syndrome G47.33 ; Multiple thyroid nodules E04.2 ; Encounter for immunization Z23 and Tobacco use Z72.[address] [place] [address] 05/14/[address] [address] 06/06/2025 [facility] ASSESSMENTS Encounter Date Diagnosis Assessment Notes Treatment Notes Treatment Clinical Notes Section Notes 11/06/2024 Tobacco use (ICD-10 - Z72.0) 1. COPD: Strongly encourage smoking cessation once again today. He is up-to-date with his lung cancer screening CAT scans. Continue current bronchodilators 2. Right flank pain: Will check an x-ray including rib films 3. Skin tag left neck: Treated with cryo today 4. Obstructive sleep apnea: Wearing CPAP faithfully with good results 11/06/2024 Chronic obstructive pulmonary disease, unspecified COPD type (ICD-10 - J44.9) 1. COPD: Strongly encourage smoking cessation once again today. He is up-to-date with his lung cancer screening CAT scans. Continue current bronchodilators 2. Right flank pain: Will check an x-ray including rib films 3. Skin tag left neck: Treated with cryo today 4. Obstructive sleep apnea: Wearing CPAP faithfully with good results 05/14/2025 Encounter for general adult medical examination without abnormal findings (ICD-10 - Z00.00) 1. RHCM: [place] was done last yesr - report not received - will send for Expect retuen needed in 5 years. He will update fasting blood work 2. Hypertension: high today -previously on Rx Will reassess in 3 mos and reconsider therapy 3. COPD: Recovered from recent infection. Continue current bronchodilators. Had a long discussion about the absolute need to stop smoking 4. Obstructive sleep apnea: Stable on current CPAP. Will continue 5. Multiple thyroid nodules seen on CT at [facility]. Thyroid ultrasound is pending 6. Flu shot given today 7. Tobacco use: Called in NicoDerm patches 05/14/2025 Essential (primary) hypertension (ICD-10 - I10) 1. RHCM: [place] was done last yesr - report not received - will send for Expect retuen needed in 5 years. He will update fasting blood work 2. Hypertension: high today -previously on Rx Will reassess in 3 mos and reconsider therapy 3. COPD: Recovered from recent infection. Continue current bronchodilators. Had a long discussion about the absolute need to stop smoking 4. Obstructive sleep apnea: Stable on current CPAP. Will continue 5. Multiple thyroid nodules seen on CT at [facility]. Thyroid ultrasound is pending 6. Flu shot given today 7. Tobacco use: Called in NicoDerm patches 06/18/2024 Upper respiratory virus (ICD-10 - J06.9) 1. Upper respiratory infection: Appears viral by history. At present he is not having a flare of his asthma but if this should occur we would do some prednisone otherwise we will push fluids and rest for the next 24 to 48 hours 06/19/2024 Acute cough (ICD-10 - R05.1) 1. Acute cough: Flu swab was negative in the office today. He had COVID just a few weeks ago. We will cover for bronchitis with Zithromax. He will let me know if asthma flares and would consider a steroid taper then. Maintain present bronchodilators 07/03/2024 Moderate persistent asthma with acute exacerbation (ICD-10 - J45.41) 11/13/2024 Moderate persistent asthma with acute exacerbation (ICD-10 - J45.41) 1. Acute cough: Negative testing for flu and influenza. Likely underlying bronchitis. Will treat with Zithromax and a prednisone taper for asthma symptoms. He will continue his baseline bronchodilators and let me know if he is not improving with these measures 11/13/2024 Acute cough (ICD-10 - R05.1) 1. Acute cough: Negative testing for flu and influenza. Likely underlying bronchitis. Will treat with Zithromax and a prednisone taper for asthma symptoms. He will continue his baseline bronchodilators and let me know if he is not improving with these measures 03/25/2025 Moderate persistent asthma without complication (ICD-10 - J45.40) 1. Moderate persistent asthma with exacerbation: Will treat with a prednisone taper and renew his bronchodilators, albuterol and budesonide/formote rol. I emphasized again the need for smoking cessation and the contribution this has to his repeated exacerbations 04/02/2025 Moderate persistent asthma without complication (ICD-10 - J45.40) 1. Acute cough: Will treat bronchitis with Zithromax and add Tessalon Perles to try and help with cough. He will complete prednisone taper 2. Moderate persistent asthma: Does not feel he is flaring significantly at present. Stressed the importance of continuing his Symbicort and albuterol. He will let me know if not improving 04/02/2025 Acute cough (ICD-10 - R05.1) 1. Acute cough: Will treat bronchitis with Zithromax and add Tessalon Perles to try and help with cough. He will complete prednisone taper 2. Moderate persistent asthma: Does not feel he is flaring significantly at present. Stressed the importance of continuing his Symbicort and albuterol. He will let me know if not improving 04/21/2025 Moderate persistent asthma with acute exacerbation (ICD-10 - J45.41) 1. Moderate persistent asthma with exacerbation in the setting of sinusitis. Will treat with doxycycline and a prednisone taper. He will continue his baseline bronchodilators. I have once again emphasized the importance of smoking cessation which is clearly causing him to have more complications with each respiratory infection. He will keep me apprised of his progress 04/21/2025 Acute non-recurrent frontal sinusitis (ICD-10 - J01.10) 1. Moderate persistent asthma with exacerbation in the setting of sinusitis. Will treat with doxycycline and a prednisone taper. He will continue his baseline bronchodilators. I have once again emphasized the importance of smoking cessation which is clearly causing him to have more complications with each respiratory infection. He will keep me apprised of his progress 04/22/2025 Acute cough (ICD-10 - R05.1) 04/25/2025 Community acquired pneumonia of right middle lobe of lung (ICD-10 - J18.9) 1. Pneumonia: Right middle lobe and right base airspace disease seen on x-ray. CAT scan recommended to rule out underlying lesion. Will add cefpodoxime to current therapy and Robitussin with codeine for sleep. He will keep me apprised of his progress. I once again emphasized the need for smoking cessation 04/25/2025 Community acquired pneumonia of right middle lobe of lung (ICD-10 - J18.9) 05/05/2025 Multiple thyroid nodules (ICD-10 - E04.2) 11/06/2024 Right flank pain (ICD-10 - R10.9) 1. COPD: Strongly encourage smoking cessation once again today. He is up-to-date with his lung cancer screening CAT scans. Continue current bronchodilators 2. Right flank pain: Will check an x-ray including rib films 3. Skin tag left neck: Treated with cryo today 4. Obstructive sleep apnea: Wearing CPAP faithfully with good results 05/14/2025 Chronic obstructive pulmonary disease, unspecified COPD type (ICD-10 - J44.9) 1. RHCM: [place] was done last yesr - report not received - will send for Expect retuen needed in 5 years. He will update fasting blood work 2. Hypertension: high today -previously on Rx Will reassess in 3 mos and reconsider therapy 3. COPD: Recovered from recent infection. Continue current bronchodilators. Had a long discussion about the absolute need to stop smoking 4. Obstructive sleep apnea: Stable on current CPAP. Will continue 5. Multiple thyroid nodules seen on CT at [facility]. Thyroid ultrasound is pending 6. Flu shot given today 7. Tobacco use: Called in NicoDerm patches 11/06/2024 Obstructive sleep apnea syndrome (ICD-10 - G47.33) 1. COPD: Strongly encourage smoking cessation once again today. He is up-to-date with his lung cancer screening CAT scans. Continue current bronchodilators 2. Right flank pain: Will check an x-ray including rib films 3. Skin tag left neck: Treated with cryo today 4. Obstructive sleep apnea: Wearing CPAP faithfully with good results 05/14/2025 Obstructive sleep apnea syndrome (ICD-10 - G47.33) 1. RHCM: [place] was done last yesr - report not received - will send for Expect retuen needed in 5 years. He will update fasting blood work 2. Hypertension: high today -previously on Rx Will reassess in 3 mos and reconsider therapy 3. COPD: Recovered from recent infection. Continue current bronchodilators. Had a long discussion about the absolute need to stop smoking 4. Obstructive sleep apnea: Stable on current CPAP. Will continue 5. Multiple thyroid nodules seen on CT at [facility]. Thyroid ultrasound is pending 6. Flu shot given today 7. Tobacco use: Called in NicoDerm patches 05/14/2025 Multiple thyroid nodules (ICD-10 - E04.2) 1. RHCM: [place] was done last yesr - report not received - will send for Expect retuen needed in 5 years. He will update fasting blood work 2. Hypertension: high today -previously on Rx Will reassess in 3 mos and reconsider therapy 3. COPD: Recovered from recent infection. Continue current bronchodilators. Had a long discussion about the absolute need to stop smoking 4. Obstructive sleep apnea: Stable on current CPAP. Will continue 5. Multiple thyroid nodules seen on CT at [facility]. Thyroid ultrasound is pending 6. Flu shot given today 7. Tobacco use: Called in NicoDerm patches 05/14/2025 Encounter for immunization (ICD-10 - Z23) Influenza vaccine administered . VIS sheet given. Patient counseled and questions answered. 1. RHCM: [place] was done last yesr - report not received - will send for Expect retuen needed in 5 years. He will update fasting blood work 2. Hypertension: high today -previously on Rx Will reassess in 3 mos and reconsider therapy 3. COPD: Recovered from recent infection. Continue current bronchodilators. Had a long discussion about the absolute need to stop smoking 4. Obstructive sleep apnea: Stable on current CPAP. Will continue 5. Multiple thyroid nodules seen on CT at [facility]. Thyroid ultrasound is pending 6. Flu shot given today 7. Tobacco use: Called in NicoDerm patches 05/14/2025 Tobacco use (ICD-10 - Z72.0) 1. RHCM: [place] was done last yesr - report not received - will send for Expect retuen needed in 5 years. He will update fasting blood work 2. Hypertension: high today -previously on Rx Will reassess in 3 mos and reconsider therapy 3. COPD: Recovered from recent infection. Continue current bronchodilators. Had a long discussion about the absolute need to stop smoking 4. Obstructive sleep apnea: Stable on current CPAP. Will continue 5. Multiple thyroid nodules seen on CT at [facility]. Thyroid ultrasound is pending 6. Flu shot given today 7. Tobacco use: Called in NicoDerm patches PLAN OF TREATMENT Pending Test Test Name Order Date CT Chest without IV contrast 04/25/2025 US Soft Tissue 11/06/2023 XR Shoulder Left minimum 2 views 024 XR Chest with Right Ribs 11/06/2024 Future Test Test Name Order Date Rapid Influenza A/B 06/19/2024 Prostate-Specific Ag (PSA)-[id number] 2024 CBC, Platelet, w/o Differential-[id number] 1 QuantiFERON-TB Gold Plus-[id number] 05/14/20 25 Lipid Panel-[id number] 05/14/2025 TSH Rfx on Abnormal to Free [id number] Comp. Metabolic Panel ([id number] 2024 Next Appt Details Provider Name:ELISABETH DESOUZA , 08/25/2025 03:15:00 PM, [address] [place] [address], [phone], Provider Name:ELISABETH DESOUZA , 05/21/2026 03:30:00 PM, [address] [place] [address], [phone], Insurance Providers Payer Name Payer Address Payer Phone Subscriber Number Group Number Insured Name Patient Relationship to Insured Coverage Start Date Coverage End Date [facility] [address] [place] [address] [id number] JEANNIE ELIZONDO Self - patient is the insured 3 MEDICAL (GENERAL) HISTORY Medical History History ICD Code Disease : Lumbar disc degeneration, Disease : Tobacco use, Hypertension, Asthma, Problems: Asthma, Added Date: 04/19/2015 , Onset Date: 06/14/2010:Active Problems: Obstructive sleep apnea syndrome, Added Date: 04/19/2015, Onset Date: 01/25/2011:Active Colonoscopy 09/2024- polyps removed- liset ign - 5 yr recall - Dr. Alegre Surgical History Surgery Date(Month/Year) : Sleep apnea, Sx_Procedure : O2 at night Intolerant of CPAP self d/c Hospitalization History Reason Date(Month/Year) [facility] - cough 05/02/25
--- OUTSIDE RECORDS SUMMARY | 2025-06-07 08:45 | XMS_ITS | Clinical Summary ---
Author Organization [facility] Address [address] [place] [address] Phone Care Team Providers Care Cyber Security Name Role Phone Fernando Mirza MD Primary Care Provider [phone] Allergies No known active allergies Encounters Date Type Department Care Team Description 05/09/2025 4:37 PM EDT - 05/09/2025 11:59 PM EDT Hospital Encounter [facility] CT Scan [address] [place] [phone] Encounter for screening for malignant neoplasm of respiratory organs; Nicotine dependence, cigarettes, uncomplicated Discharge Disposition: Home or Self Care 04/22/2025 Telephone Lung Screening Program - [place] [address] [facility] [address] [place] [phone] Zuri Ray MA from Last 3 Months [...] 19+ 3-dose series) 1984 Pneumococcal Vaccine: 50+ Years (1 of 1 - PCV) 2015 Cholesterol Screening (Lipid Panel) 07/03/2022 HIV Screening 07/03/2022 Hepatitis C Screening 07/03/2022 Social Influencers of Health Screening 07/03/2022 Depression Screening 07/31/2024 COVID-19 Vaccine ( - season) 2025 07/19/2021, 09/24/2020, 08/27/2020 Influenza Vaccine (#1) 2025 4, 05/06/2022, 05/23/2021, Additional history exists RSV Immunization Adult Patients (1 - 1-dose 75+ series) 2040 Zoster Vaccines Completed 08/03/2020, 06/20/2020 HIB Vaccines Aged Out No longer eligi [...] to complete this topic RSV Immunization Patients Under 20 months Aged Out No longer eligible based on patient's age to complete this topic Varicella Vaccines Aged Out No longer eligible based on patient's age to complete this topic Procedures Procedure Name Priority Date/Time Associated Diagnosis Comments CT LUNG SCREENING Routine 05/09/2025 5:1 0 PM EDT Encounter for screening for malignant neoplasm of respiratory organs Nicotine dependence, cigarettes, uncomplicated from Last 3 Months Results * CT Lung Screening (05/09/2025 5:10 PM EDT) Anatomical Region Laterality Modality Chest Computed Tomogra phy 05/19/2025 12:1 7 PM EDT Impressions 05/19/2025 1:14 PM EDT Lung RADS 1. No suspicious pulmonary nodule. Guidelines recommend repeat low-dose screening CT in 12 months. -------- FINAL REPORT -------- Dictated By: Fracisco Novoa Dictated Date: 05/19/2025 12:17 ET Assigned Physician: Fracisco Novoa Reviewed and Electronically Signed By: Fracisco Novoa Signed Date: 05/19/2025 13:14 ET Workstation ID: [id number] Transcribed By: Self Edit Transcribed Date: 05/19/2025 12:17 ET Narrative 05/19/2025 1:14 PM EDT PROCEDURE: Low-dose CT of the chest without intravenous contrast. TECHNIQUE: Low-dose CT of the chest without intravenous contrast administration. Coronal and sagittal reformats and MIP reconstructions were created. Dose length product: 162 mGy-cm. HISTORY: Lung cancer screening, >=20 pk yr current smoker (Age 50-80y) COMPARISON: 05/09/2024. FINDINGS: Lungs/pleura: The central airways are clear and normal in caliber. No suspicious pulmonary nodule or mass. No pleural effusion or pneumothorax. Mediastinum/michelle: No mediastinal mass or lymphadenopathy. No appreciable hilar lymphadenopathy on limited noncontrast evaluation. Vasculature: Normal caliber pulmonary arteries. Mild atherosclerotic calcifications of the aorta and great vessels. Cardiac: Normal heart size. Minimal coronary artery calcification. Chest wall: No axillary or supraclavicular lymphadenopathy. Limited abdomen: Stable scattered small low-attenuation liver lesions, likely cysts but too small for definitive characterization. Bones: Degenerative changes of the spine. Mild degenerative changes of the glenohumeral joints. Procedure Note Fracisco Novoa MD - 05/19/2025 PROCEDURE: Low-dose CT of the chest without intravenous contrast. TECHNIQUE: Low-dose CT of the chest without intravenous contrastadministration. Coronal and sagittal reformats and MIP reconstructionswere created. Dose length product: 162 mGy-cm. HISTORY: Lung cancer screening, >=20 pk yr current smoker (Age 50-80y) COMPARISON: 05/09/2024. FINDINGS: Lungs/pleura: The central airways are clear and normal in caliber. Nosuspicious pulmonary nodule or mass. No pleural effusion orpneumothorax. Mediastinum/michelle: No mediastinal mass or lymphadenopathy. No appreciablehilar lymphadenopathy on limited noncontrast evaluation. Vasculature: Normal caliber pulmonary arteries. Mild atheroscleroticcalcifications of the aorta and great vessels. Cardiac: Normal heart size. Minimal coronary artery calcification. Chest wall: No axillary or supraclavicular lymphadenopathy. Limited abdomen: Stable scattered small low-attenuation liver lesions,likely cysts but too small for definitive characterization. Bones: Degenerative changes of the spine. Mild degenerative changes ofthe glenohumeral joints. IMPRESSION: Lung RADS 1. No suspicious pulmonary nodule. Guidelines recommend repeatlow-dose screening CT in 12 months. -------- FINAL REPORT -------- Dictated By: Fracisco Novoa Dictated Date: 05/19/2025 12:17 ET Assigned Physician: Fracisco Novoa Reviewed and Electronically Signed By: Fracisco Novoa Signed Date: 05/19/2025 13:14 ET Workstation ID: [id number] Transcribed By: Self Edit Transcribed Date: 05/19/2025 12:17 ET Kofi Dutton MD IMG CT PROCEDURES Final Result from Last 3 Months Insurance [employer] [facility] Care Teams Cyber Security Relationship Specialty Start Date End Date Fernando Mirza MD [address] [place] [id number] PCP - General Internal Medicine 05/09/25
[2025-06-07 09:21] LABS: MANUAL DIFF FLAG NO
[2025-06-07 10:37] LABS: Hematocrit 46.6 % (42.0-52.0); Hemoglobin 15.6 g/dl (14.0-18.0); Imm Gran Abs Auto 0.03 X10*3/uL (0.00-0.03); Imm Gran Pct Auto 0.4 % (0.0-0.4); Lymphocytes Absolute Auto 2.5 X10*3/uL (1.2-4.9); Mean Corpuscular HGB Conc 33.5 g/dl (31.0-36.0); Mean Corpuscular Hemoglobin 29.6 pg (27.0-33.0); Mean Corpuscular Volume 88.4 fL (80.0-98.0); NRBC Abs Auto 0.000 X10*3/uL (0.0-0.012); NRBC Pct Auto 0.0 /100WBC (0.0-0.2); Platelet Count 227 X10*3/uL (160-400); Red Blood Count 5.27 X10*6/uL (4.60-5.80); White Blood Count 7.9 X10*3/uL (4.8-10.8)
[2025-06-07 11:53] LABS: Alanine Aminotransferase 20 U/L (0-40); Albumin Level 4.6 g/dL (3.5-5.0); Alkaline Phosphatase 56 U/L (39-117); Anion Gap 12 (12-20); Aspartate Amino Transferase 24 U/L (5-37); Blood Urea Nitrogen 20 mg/dL (9-16); Calcium 9.1 mg/dL (8.4-10.2); Carbon Dioxide 26 mmol/L (22-29); Chloride 107 mmol/L (96-108); Cholesterol 186 mg/dL (<200); Estimated Glomerular Filt Rate > 60; HDL Cholesterol 37 mg/dL (>40); Potassium 4.2 mmol/L (3.3-5.1); Sodium 141 mmol/L (135-145); Total Protein 7.3 g/dL (6.5-8.0); Triglycerides 129 mg/dL (<150)
[2025-06-07 11:55] LABS: Prostate Specific Antigen 0.55 ng/mL (<0.05-4.0)
== END 2025-06-07 08:41 | disposition home or self-care (01) ==
LOC: HO.LAB 08:40
PROVIDERS: PCP Internal Medicine; Visit Provider Internal Medicine
DX: Z00.00 Encounter for general adult medical examination without abnormal findings (principal); I10 Essential (primary) hypertension; E04.2 Nontoxic multinodular goiter; Z12.5 Encounter for screening for malignant neoplasm of prostate
CPT/HCPCS: 36415; 80053; 80061; 84153; 84443; 85025; 86481

== ENCOUNTER 2025-06-27 09:06 | Outpatient (REF) | payer OTHER, SELFPAY ==
--- OUTSIDE RECORDS SUMMARY | 2024-09-13 06:40 | XMS_ITS ---
Author Organization [facility] Address [address] [place] [address] Care Team Providers Care Tourist Guide Name Role Phone Fernando Mirza MD Primary Care Provider Unavailab Go Martinez Jr Unavailable [phone] REASON FOR VISIT screening Encounters Encounter Location Date Provider Diagnosis [facility] [place] [address] [place] [phone] 09/13/2024 Go Alegre Jr Plan Of Treatment No Information Progress Notes * JEANNIE [birth year]ODOB:[birth year] (59 yo M)Acc No.[id number]:09/13/2024 COLON WITH MAC Patient: JEANNIE LANDRUM Provider: Frankie Alegre MD :1965 A ge:59 Y S ex:Male Date:09/13/2024 Address:[address] [place], [place] [phone] Pcp:Fernando Mirza MD Subjective: * Chief Complaints: * S creening * The named appointment provid er may or may not be the originator of this progress note, and it is not deemed complete until electronically signed by the appointment provider. Sign off status: Pending * Provider: Frankie Aleger MD Date: 0 09/13/2024 Generated for Subhash bacon/Kathleen/eTransmitting on: 08/27/2024 09:10 AM EST
--- OUTSIDE RECORDS SUMMARY | 2024-10-11 08:20 | XMS_ITS ---
Author Organization [facility] Address [address] [place] [address] Care Team Providers Care Wagon Driller Name Role Phone Fernando Mirza MD Primary Care Provider Unavailab Go Martinez Jr Unavailable [phone] REASON FOR VISIT screening Encounters Encounter Location Date Provider Diagnosis [facility] [place] [address] [place] [phone] 10/11/2024 Go Alegre Jr Colon cancer screening [...] * JEANNIE ELIZONDODOB:[birth year] (59 yo M)Acc No.[id number]:10/11/2024 COLON WITH MAC Patient: JEANNIE LANDRUM Provider: Frankie Alegre MD :1965 A ge:59 Y S ex:Male Date:10/11/2024 Address: [address] [id number] Pcp:Fernando Mirza MD Subjective: * Chief Complaints: * S creening Assessment: * Assessment: 1. C olon cancer screening - Z12.11 (Primary) 2 . P ersonal history of adenomatous and serrated colon polyps - Z86.0101 3 . C olon polyps - K63.5 ? Plan: * Procedure Codes: 4 5385 LESION REMOVAL [id number] COLONOSCOPY AND BIOPSY, Modifiers: 59 0529F INTRVL 3+YRS PTS CLNSCP DOCD Billing Information: * Procedure Codes: 51857 LESION REMOVAL COLONOSCOPY. 44050 COLONOSCOPY AND BIOPSY. Modifiers: 59 0529F INTRVL 3+YRS PTS CLNSCP DOCD. * The named appointment provid er may or may not be the originator of this progress note, and it is not deemed complete until electronically signed by the appointment provider. Sign off status: Pending * Provider: Frankie Alegre MD Date: 0 10/11/2024 Generated for Subhash bacon/Kathleen/Frederic on: 08/27/2024 09:11 AM EST
--- OUTSIDE RECORDS SUMMARY | 2025-04-22 08:08 | XMS_ITS ---
Author Organization [facility] Address [address] [place] [address] Care Team Providers Care Associate Producer Name Role Phone ELISABETH DESOUZA Primary Care Provider REASON FOR VISIT (2) still coughing MEDICATIONS Medication SIG (Take, Route, Fr equency, Duration) Notes Start Date End Date Status Benzonatate 100 MG 1 capsule as needed Orally Three times a day for 10 days 04/02/2025 Active Encounters Encounter Location Date Provider Diagnosis [address] [phone] 04/22/2025 ELISABETH DESOUZA Acute cough R05.1 ASSESSMENTS Encounter Date Diagnosis Assessment Notes Treatment Notes Treatment Clinical Notes Section Notes 04/22/2025 Acute cough (ICD-10 - R05.1) PLAN OF TREATMENT Medication Medication Name Sig Start Date Stop Date Notes Benzonatate 100 MG 1 capsule as needed Orally Three times a day for 10 days 04/02/2025 Next Appt Details Provider Name:ELISABETH DENNISONFORD , 08/25/2025 03:15:00 PM, [address] [place] [address], [phone], Provider Name:ELISABETH DENNISONFORD , 05/21/2026 03:30:00 PM, [address] [place] [address], [phone],
--- OUTSIDE RECORDS SUMMARY | 2025-04-24 10:24 | XMS_ITS ---
Author Organization [facility] Address [address] [place] [address] Care Team Providers Care Needleworker Name Role Phone ELISABETH DESOUZA Primary Care Provider REASON FOR VISIT (2)AF-04/24/25) cxr results/ cough not better Encounters Encounter Location Date Provider Diagnosis [address] [phone] 04/24/2025 ELISABETH DESOUZA PLAN OF TREATMENT Next Appt Details Provider Name:ELISABETH DESOUZA , 08/25/2025 03:15:00 PM, [address] [place] [address], [phone], Provider Name:ELISABETH DESOUZA , 05/21/2026 03:30:00 PM, [address] [place] [address], [phone],
--- OUTSIDE RECORDS SUMMARY | 2025-04-25 09:30 | XMS_ITS ---
Author Organization [facility] Address [address] [place] [address] Care Team Providers Care Manufacturing Coordinator Name Role Phone ELISABETH DESOUZA Primary Care [...] day do you smoke? 6-10 VITAL SIGNS Height 68.50 in 04/25/2025 Weight 98.2 lbs 04/25/2025 Blood pressure systolic 128 mm Hg 04/25/20 25 Blood pressure diastolic 84 mm Hg 025 BMI 14.71 kg/m2 04/25/2025 Encounters Encounter Location Date Provider Diagnosis [facility] [address] [place] [phone] 04/25/2025 ELISABETH DESOUZA Community acquired pneumonia of [...] Provider Name:ELISABETH DESOUZA , 08/25/2025 03:15:00 PM, [address] [place] [address], [phone], Provider Name:ELISABETH DESOUZA , 05/21/2026 03:30:00 PM, [address] [place] [address], [phone], Progress Notes * Examination Category Sub-Category Detail [...]
--- OUTSIDE RECORDS SUMMARY | 2025-04-25 09:53 | XMS_ITS ---
Author Organization [facility] Address [address] [place] [address] Care Team Providers Care Account Manager Trainee Name Role Phone LYLYELISABETH Primary Care Provider MEDICATIONS Medication SIG (Take, Route, Frequency, Duration) Notes Start Date End Date Status guaiFENesin-Codeine 200-10 MG/5ML 5 mL as needed Orally every 12 hrs for 10 days 04/25/2025 Active Encounters Encounter Location Date Provider Diagnosis [address] [phone] 04/25/2025 ELISABETH DENNISONFORD Community acquired pneumonia of [...] 10 days 04/25/2025 Next Appt Details Provider Name:ELISABETH DESOUZA , 08/25/2025 03:15:00 PM, [address] [place] [address], [phone], Provider Name:ELISABETH Nimisha LYLY , 05/21/2026 03:30:00 PM, [address] [place] [address], [phone],
--- OUTSIDE RECORDS SUMMARY | 2025-04-29 05:32 | XMS_ITS ---
Author Organization [facility] Address [address] [place] [address] Care Team Providers Care Retail Operations Manager Name Role Phone ELISABETH DESOUZA Primary Care Provider [phone] REASON FOR VISIT (2) still has cough and SOB Encounters Encounter Location Date Provider Diagnosis [address] [address] 04/29/2025 ELISABETH DESOUZA PLAN OF TREATMENT Next Appt Details Provider Name:ELISABETH DESOUZA , 08/25/2025 03:15:00 PM, [address] [place] [address], [phone], Provider Name:ELISABETH DESOUZA , 05/21/2026 03:30:00 PM, [address] [place] [address], [phone],
--- OUTSIDE RECORDS SUMMARY | 2025-05-01 10:41 | XMS_ITS ---
Author Organization [facility] Address [address] [place] [address] Care Team Providers Care Township Supervisor Name Role Phone ELISABETH DESOUZA Primary Care Provider [phone] REASON FOR VISIT (FYI) Work Note Encounters Encounter Location Date Provider Diagnosis [address] [address] 05/01/2025 ELISABETH DESOUZA PLAN OF TREATMENT Next Appt Details Provider Name:ELISABETH DESOUZA , 08/25/2025 03:15:00 PM, [address] [place] [address], [phone], Provider Name:ELISABETH DESOUZA , 05/21/2026 03:30:00 PM, [address] [place] [address], [phone],
--- OUTSIDE RECORDS SUMMARY | 2025-05-05 09:33 | XMS_ITS ---
Author Organization [facility] Address [address] [place] [address] Care Team Providers Care Healthcare Risk Control Consultant Name Role Phone ELISABETH DESOUZA Primary Care Provider [phone] REASON FOR VISIT work note PROBLEMS Problem Type ICD Code Onset Dates Problem Status W/U Status Risk SNOMED Code Notes Problem Multiple thyroid nodules (E04.2) Active confirmed [id number] Encounters Encounter Location Date Provider Diagnosis [address] [phone] 05/05/2025 ELISABETH DESOUZA Multiple thyroid nodules E04.2 ASSESSMENTS Encounter Date Diagnosis Assessment Notes Treatment Notes Treatment Clinical Notes Section Notes 05/05/2025 Multiple thyroid nodules (ICD-10 - E04.2) PLAN OF TREATMENT Next Appt Details Provider Name:ELISABETH Bansal LYLY , 08/25/2025 03:15:00 PM, [address] [place] [address], [phone], Provider Name:ELISABETH DENNISONFORD , 05/21/2026 03:30:00 PM, [address] [place] [address], [phone],
--- OUTSIDE RECORDS SUMMARY | 2025-05-14 10:45 | XMS_ITS ---
Author Organization [facility] Address [address] [place] [address] Care Team Providers Care Turbine Engine Assembler Name Role Phone ELISABETH DESOUZA Primary Care Provider [phone] ALLERGIES No Known Allergies REASON FOR VISIT CPX, would like flu vacc today, requesting for TB test for medical MEDICATIONS Medication SIG (Take, Route, Frequency, Duration) Notes Start Date End Date Status Budesonide-Formoterol Fumarate 160-4.5 MCG/ACT 2 puffs Inhalation Twice a day Active Albuterol Sulfate HFA 108 (90 Base) MCG/ACT 2 puffs as needed Inhalation qid 05/08/2024 Active Nicoderm CQ 21 MG/24HR 1 patch to skin Transdermal Once a day for 42 days 05/14/2025 Active IMMUNIZATIONS Vaccine Route Administration Date Status Comme nts Influenza, Flublok IM Intramuscular 05/14/2025 Administere d SOCIAL HISTORY Tobacco Use: Social History Observation Description Date Details (start date - stop date) Current Smoker NA - NA Sex Assigned At : Social History Observation Description Sex Assigned At Unknown Smoking Question Answer Notes Are you a: current smoker How often do you smoke Cigarettes? every day How many cigarettes a day do you smoke? 6-10 VITAL SIGNS Height 67.50 in 05/14/2025 Weight 203.2 lbs 05/14/2025 Blood pressure systolic 132 mm Hg 05/14/20 25 Blood pressure diastolic 86 mm Hg 025 BMI 31.35 kg/m2 05/14/2025 Encounters Encounter Location Date Provider Diagnosis [facility] [address] [place] [phone] 05/14/2025 [facility] Encounter for genera l adult medical examination without abnormal findings Z00.00 ; Essential (primary) hypertension I10 ; Chronic obstructive pulmonary disease, unspecified COPD type J44.9 ; Obstructive sleep apnea syndrome G47.33 ; Multiple thyroid nodules E04.2 ; Encounter for immunization Z23 and Tobacco use Z72.0 ASSESSMENTS Encounter Date Diagnosis Assessment Notes Treatment Notes Treatment Clinical Notes Section Notes 05/14/2025 Encounter for general adult medical examination without abnormal findings (ICD-10 - Z00.00) 1. RHCM: [place] was done last yesr - report not received - will send for Expect retuen needed in 5 years. He will update fasting blood work 2. Hypertension: high today -previously on Rx Will reassess in 3 mos and reconsider therapy 3. COPD: Recovered from recent infection. Continue current bronchodilators . Had a long discussion about the absolute need to stop smoking 4. Obstructive sleep apnea: Stable on current CPAP. Will continue 5. Multiple thyroid nodules seen on CT at [facility] Thyroid ultrasound is pending 6. Flu shot given today 7. Tobacco use: Called in NicoDerm patches 05/14/2025 Essential (primary) hypertension (ICD-10 - I10) 1. RHCM: [place] was done last yesr - report not received - will send for Expect retuen needed in 5 years. He will update fasting blood work 2. Hypertension: high today -previously on Rx Will reassess in 3 mos and reconsider therapy 3. COPD: Recovered from recent infection. Continue current bronchodilators . Had a long discussion about the absolute need to stop smoking 4. Obstructive sleep apnea: Stable on current CPAP. Will continue 5. Multiple thyroid nodules seen on CT at [facility] Thyroid ultrasound is pending 6. Flu shot given today 7. Tobacco use: Called in NicoDerm patches 05/14/2025 Chronic obstructive pulmonary disease, unspecified COPD type (ICD-10 - J44.9) 1. RHCM: [place] was done last yesr - report not received - will send for Expect retuen needed in 5 years. He will update fasting blood work 2. Hypertension: high today -previously on Rx Will reassess in 3 mos and reconsider therapy 3. COPD: Recovered from recent infection. Continue current bronchodilators . Had a long discussion about the absolute need to stop smoking 4. Obstructive sleep apnea: Stable on current CPAP. Will continue 5. Multiple thyroid nodules seen on CT at [facility] Thyroid ultrasound is pending 6. Flu shot given today 7. Tobacco use: Called in NicoDerm patches 05/14/2025 Obstructive sleep apnea syndrome (ICD-10 - G47.33) 1. RHCM: [place] was done last yesr - report not received - will send for Expect retuen needed in 5 years. He will update fasting blood work 2. Hypertension: high today -previously on Rx Will reassess in 3 mos and reconsider therapy 3. COPD: Recovered from recent infection. Continue current bronchodilators . Had a long discussion about the absolute need to stop smoking 4. Obstructive sleep apnea: Stable on current CPAP. Will continue 5. Multiple thyroid nodules seen on CT at [facility] Thyroid ultrasound is pending 6. Flu shot given today 7. Tobacco use: Called in NicoDerm patches 05/14/2025 Multiple thyroid nodules (ICD-10 - E04.2) 1. RHCM: [place] was done last yesr - report not received - will send for Expect retuen needed in 5 years. He will update fasting blood work 2. Hypertension: high today -previously on Rx Will reassess in 3 mos and reconsider therapy 3. COPD: Recovered from recent infection. Continue current bronchodilators . Had a long discussion about the absolute need to stop smoking 4. Obstructive sleep apnea: Stable on current CPAP. Will continue 5. Multiple thyroid nodules seen on CT at [facility] Thyroid ultrasound is pending 6. Flu shot given today 7. Tobacco use: Called in NicoDerm patches 05/14/2025 Encounter for immunization (ICD-10 - Z23) Influenza vaccine administered. VIS sheet given. Patient counseled and questions answered. 1. RHCM: [place] was done last yesr - report not received - will send for Expect retuen needed in 5 years. He will update fasting blood work 2. Hypertension: high today -previously on Rx Will reassess in 3 mos and reconsider therapy 3. COPD: Recovered from recent infection. Continue current bronchodilators . Had a long discussion about the absolute need to stop smoking 4. Obstructive sleep apnea: Stable on current CPAP. Will continue 5. Multiple thyroid nodules seen on CT at [facility] Thyroid ultrasound is pending 6. Flu shot given today 7. Tobacco use: Called in NicoDerm patches 05/14/2025 Tobacco use (ICD-10 - Z72.0) 1. RHCM: [place] was done last yesr - report not received - will send for Expect retuen needed in 5 years. He will update fasting blood work 2. Hypertension: high today -previously on Rx Will reassess in 3 mos and reconsider therapy 3. COPD: Recovered from recent infection. Continue current bronchodilators . Had a long discussion about the absolute need to stop smoking 4. Obstructive sleep apnea: Stable on current CPAP. Will continue 5. Multiple thyroid nodules seen on CT at [facility] Thyroid ultrasound is pending 6. Flu shot given today 7. Tobacco use: Called in NicoDerm patches PLAN OF TREATMENT Medication Medication Name Sig Start Date Stop Date Notes Budesonide-Formoterol Fumarate 160-4.5 MCG/ACT 2 puffs Inhalation Twice a day Albuterol Sulfate HFA 108 (9 0 Base) MCG/ACT 2 puffs as needed Inhalation qid 05/08/2024 Nicoderm CQ 21 MG/24HR 1 patch to skin T ransdermal Once a day for 42 days 05/14/2025 Treatment Notes Assessment Notes Encounter for immunization Influenza vac cine administered. VIS sheet given. Patient counseled and questions answered. Future Test Test Name Order Date Prostate-Specific Ag (PSA)-[id number] 2024 CBC, Platelet, w/o [id number] 1 QuantiFERON-TB Gold [id number] 05/14/20 25 Lipid Panel-[id number] 05/14/2025 TSH Rfx on Abnormal to Free [id number] Comp. Metabolic Panel [id number] 2024 Next Appt Details Provider Name:ELISABETH DESOUZA , 08/25/2025 03:15:00 PM, [address] [place] [address], [phone], Provider Name:ELISABETH DESOUZA , 05/21/2026 03:30:00 PM, [address] [place] [address], [phone], Progress Notes * Examination Category Sub-Category Detail Notes Category Not es General Examination HEENT: PERRLA, EOMI bilaterally, nose clear, oropharynx clear, no TM's normal, scleral icterus, , Normocephalic/atraumatic Neck: no lymphadenopathy, no thyroid abnormality, no bruit, normal ROM of C spine Heart: RRR, normal S1S2, no murmurs, clicks or rubs Lungs: clear to auscultatio n, no crackles, , no wheezes Abdomen: soft, non tender/non distended, no rebound tenderness, no guarding or rigidity, no masses palpated Extremities: no edema General Appearance no apparent distress Skin: no rash Neuro alert and oriented x 3, CN 2-12 intact, no focal moror abnormality, no tremor Peripheral pulses: bilaterally symetric al dorsalis pedis, posterior tibial, radial and Carotids Back: no spinal tenderness Rectal prostate enlarged Lymphatics No nodes in neck Psych: affect normal History and Physical Notes * HPI (History of Present Illness) Category Sub-Category Detail Notes Category Not es Depression Screening PHQ-2 (2015 Edition) Little interest or pleasure in doing things?: Nearly every day Feeling down, depressed, or hopeless?: S everal days Total Score: 4
--- OUTSIDE RECORDS SUMMARY | 2025-05-14 10:53 | XMS_ITS ---
Author Organization [facility] Address [address] [place] [address] Care Team Providers Care Clinical Mental Health Counselor Name Role Phone ELISABETH DESOUZA Primary Care Provider REASON FOR VISIT (AF-05/14/25) [place] Encounters Encounter Location Date Provider Diagnosis [address] [address] 05/14/2025 ELISABETH DESOUZA PLAN OF TREATMENT Next Appt Details Provider Name:ELISABETH DESOUZA , 08/25/2025 03:15:00 PM, [address] [place] [address], [phone], Provider Name:ELISABETH DESOUZA , 05/21/2026 03:30:00 PM, [address] [place] [address], [phone],
--- OUTSIDE RECORDS SUMMARY | 2025-06-06 11:49 | XMS_ITS ---
Author Organization [facility] Address [address] [place] [address] Care Team Providers Care Currency Examiner Name Role Phone ELISABETH DESOUZA Primary Care Provider REASON FOR VISIT Thyroid ultrasound Encounters Encounter Location Date Provider Diagnosis [address] [address] 06/06/2025 ELISABETH DESOUZA PLAN OF TREATMENT Next Appt Details Provider Name:ELISABETH DESOUZA , 08/25/2025 03:15:00 PM, [address] [place] [address], [phone], Provider Name:ELISABETH DESOUZA , 05/21/2026 03:30:00 PM, [address] [place] [address], [phone],
--- OUTSIDE RECORDS SUMMARY | 2025-06-27 09:10 | XMS_ITS | Patient Health Record ---
Author Organization [facility] Address [address] [place] [address] Care Team Providers Care Mechanical Door Repairer Name Role Phone Yuki MARIE, Fernando Primary Care Provider Go Green Jr Unavailable [phone] Allergies No Known Allergies Results Component Value Reference Range Notes Pathology Reviewed date:10/15/2024 01:29:38 PM Interpretation: Performing Lab:[facility], [address] [place] [id number] Notes/Report: Reason For Referral No Information Medications Medication SIG (Take, Route, Frequency, Duration) Notes Start Date End Date Status MiraLax (colon prep) 8.3 ounce ((238) grams mixed with Gatorade or Crystal Light orally begin at 5:00 p.m. the day before the procedure; Duration: 1 day 08/30/2024 Active Dulcolax (colon prep) 5 MG Tablet Delayed Release take at 3:00 p.m and 7:00p.m. Orally two tablets twice a day for one day; Duration: 1 day 08/30/2024 Active MiraLax (colon prep) 17 GM/SCOOP Powder mixed with Gatorade or Crystal Light Orally begin at 5:00 p.m. the day before the procedure; Duration: 1 day 08/29/2024 Active Immunizations Vaccine Route Administration Date Status Comme nts Influenza Unknown 05/25/2018 Administered Social History Tobacco Use: Social History Observation Description Date Details (start date - stop date) Current Smoker NA - NA Social History Drugs/Alcohol: Social Info Question Answer Notes Alcohol Screen Did you have a drink containing alcohol in the past year? Yes How often did you have a drink containing alcohol in the past year? 2 to 4 times a month (2 points) How many drinks did you have on a typical day when you were drinking in the past year? 1 or 2 drinks (0 point) How often did you have 6 or more drinks on one occasion in the past year? Never (0 point) Points 2 Interpretation Negative Tobacco Use: Social Info Question Answer Notes Tobacco Use/Smoking Patient is a current smoker How often do you smoke cigarettes? every day How many cigarettes a day do you smoke? 11-20 How soon after you wake up do you smoke your first cigarette? 6-30 minutes Are you interested in quitting? Thinking about quitting Additional Details Category Social Info Options Details Miscellaneous: Marital status: Occupation: straight truck driver Problems Problem Type SNOMED Code ICD Code Onset Dates Problem Status W/U Status Risk Notes Problem Colon cancer screening (611570513) Colon cancer screening (Z12.11) Active confirmed Problem Rectal bleeding (42259423) Rectal bleeding (K62.5) Active confirmed Problem Pre-procedure evaluation check (286832601) Encounter for other preprocedural examination (Z01.818) Active confirmed Problem History of polyp of colon (situation) (704594689) Personal history of colonic polyps (Z86.0100) Active confirmed Vital Signs Blood pressure diastolic 00 mm Hg 08/29/2024 Height 67 in 08/29/2024 Blood pressure systolic 00 mm Hg 08/29/2024 Weight 210 lbs 08/29/2024 BMI 32.89 kg/m2 08/29/2024 Encounters Encounter Location Date Provider Diagnosis [facility] [address] [place] [id number] 10/11/2024 Go Alegre Jr Colon cancer screening Z12.11 ; Personal history of adenomatous and serrated colon polyps Z86.0101 and Colon polyps K63.5 [facility] [address] [place] [address] 08/29/2024 Go Alegre Jr Colon cancer screening Z12.11 ; Encounter for other preprocedural examination Z01.818 and Personal history of colonic polyps Z86.0100 [facility] [address] [place] [address] 08/29/2024 Go Alegre Jr [facility] [address] [place] [address] 09/02/2024 Go Alegre Jr [facility] [address] [place] [address] 09/03/2024 Go Codey Lanodn [facility] [address] [place] [address] 10/15/2024 Go Codey Jr Assessments Encounter Date Diagnosis (ICD Code) [...] understands these and agrees to proceed. 08/29/2024 Personal history of colonic polyps (ICD-10 - Z86.0100) We discussed colonoscopy today. We discussed risks and benefits of the procedure today. He understands these and agrees to proceed. 10/11/2024 Colon polyps (ICD-10 - K63.5) Plan Of Treatment Future Test Test Name Order Date COLONOSCOPY 02/25/2016 COLONOSCOPY 04/11/2019 COLONOSCOPY 08/29/2024 Insurance Providers Payer Name Payer Address Payer Phone Subscriber Number Group Number Insured Name Patient Relationship to Insured Coverage Start Date Coverage End Date [employer] [place] [address] [address] [place] [address] [id number] JEANNIE ELIZONDO Self - patient is the insured Medical (General) History Medical History History ICD Code Colonoscopy 06/18, tubular adenoma, five -year followup asthma hypertension Obstructive sleep apnea/CPAP Surgical History Surgery Date(Month/Year)
--- OUTSIDE RECORDS SUMMARY | 2025-06-27 09:10 | XMS_ITS | Clinical Summary ---
Author Organization [facility] Address [address] [place] [address] Care Team Providers Care Treasury Agent Name Role Phone Unavailable Primary Care Provider [...]
--- OUTSIDE RECORDS SUMMARY | 2025-06-27 09:11 | XMS_ITS | Clinical Summary ---
Author Organization [facility] Address [address] [place] [address] Phone Care Team Providers Care Seat Mender Name Role Phone Fernando Mirza MD Primary Care Provider [phone] Allergies No known active allergies Encounters Date Type Department Care Team Description 05/09/2025 4:37 PM EDT - 05/09/2025 11:59 PM EDT Hospital Encounter [facility] Scan [address] [place] [phone] Encounter for screening for malignant neoplasm of respiratory organs; Nicotine dependence, cigarettes, uncomplicated Discharge Disposition: Home or Self Care 04/22/2025 Telephone Lung Screening Program - [place] [address] [facility] [address] [place] [phone] Zuri Ray MA from Last 3 Months [...] Signed Date: 05/19/2025 13:14 ET Workstation ID: [id number] Transcribed By: Self Edit Transcribed Date: 05/19/2025 [...] Signed Date: 05/19/2025 13:14 ET Workstation ID: [id number] Transcribed By: Self Edit Transcribed Date: 05/19/2025 12:17 ET Kofi Dutton MD IMG CT PROCEDURES Final Result from Last 3 Months Insurance Stat [facility] Care Teams Seat Mender Relationship Specialty Start Date End Date Fernando Mirza MD [address] [place] [id number] PCP - General Internal Medicine 05/09/25
--- OUTSIDE RECORDS SUMMARY | 2025-06-27 09:11 | XMS_ITS | Clinical Summary ---
Author Organization [facility] Address [address] [place] [address] Phone Care Team Providers Care Bricklayer Tender Name Role Phone Fernando Mirza MD Primary Care Provider [phone] Immunizations Immunization Administration Dates Next Due COVID-19 [...] topic Medical Devices Not on file Insurance [employer] [facility] [employer] BENEFITS ADMIN[employer]RATORS [facility] Disruption [employer] [facility] ADMIN[facility]ATORS [facility] [employer] [facility] [employer] Care Teams Bricklayer Tender Relationship Specialty Start Date End Date Fernando Mirza MD [address] [place] [address] PCP - General Internal Medicine 08/25/20 Additional Source Comments The information contained in this document represents components of the legal health record. It is not the complete legal health record.[facility]
--- OUTSIDE RECORDS SUMMARY | 2025-06-27 09:11 | XMS_ITS | Patient Health Record ---
Author Organization [facility] Address [address] [place] [address] Care Team Providers Care Steam Fitter Helper Name Role Phone ELISABETH DESOUZA Primary Care Provider [phone] ALLERGIES No Known Allergies REASON FOR REFERRAL [...] Administered Zoster recombinant Unknown 08/03/2020 Administered [facility] [id number] Td (Tetanus Diphtheria) Unknown 07/06/2004 [...] Problem Essential (primary) hypertension (I10) Active confirmed 04780953 Problem Other obesity due to excess calories (E66.09) Active confirmed 630188185 Problem Mixed hyperlipidemia (E78.2) Active confirmed 222929616 Problem Obstructive sleep apnea syndrome (G47.33) Active confirmed 95248205 Problem Moderate persistent asthma without complication (J45.40) Active confirmed 732080644 Problem Moderate persistent asthma with acute exacerbation (J45.41) Active confirmed 971683405 Problem Chronic obstructive pulmonary disease, unspecified COPD type (J44.9) Active confirmed 91832307 Problem Multiple thyroid nodules (E04.2) Active confirmed 432982294 Problem Insomnia, unspecified type (G47.00) Active confirmed 734155919 Problem Anxiety, generalized (F41.1) Active confirmed 80622406 Problem Acute non-recurrent frontal sinusitis (J01.10) Active confirmed 71476024 Problem Body mass index [BMI] 31.0-31.9, adult (Z68.31) Active confirmed 058730637 Problem Obesity, class 1 (E66.811) Active confirmed 925939000 VITAL SIGNS Blood pressure diastolic 86 mm Hg 05/14/2025 Height 67.50 in 05/14/2025 Blood pressure systolic 132 mm Hg 05/14/2025 Weight 203.2 lbs 05/14/2025 BMI 31.35 kg/m2 05/14/2025 Encounters Encounter Location Date Provider Diagnosis [address] [address] 07/03/2024 [facility] Moderate persistent asthma with acute exacerbation J45.[address] [address] 11/06/2024 [facility] Chronic obstructive pulmonary disease, unspecified COPD type J44.9 ; Tobacco use Z72.0 ; Right flank pain R10.9 and Obstructive sleep apnea syndrome G47.[address] [address] 11/13/2024 ELISABETH [place] [phone] 11/13/2024 [facility] Moderate persistent asthma with acute exacerbation J45.41 and Acute cough R05.1 [facility] [address] [facility] [place] [address] 03/25/2025 [facility] [address] [place] [address] 03/25/2025 [facility] Moderate persistent asthma without complication J45.40 [facility] [address] [facility] [place] [address] 03/31/2025 [facility] [address] [place] [address] 04/02/2025 [facility] [address] [facility] [place] [address] 04/02/2025 [facility] Moderate persistent asthma without complication J45.40 and Acute cough R05.1 [facility] [address] [facility] [place] [address] 04/21/2025 [facility] Moderate persistent asthma with acute exacerbation J45.41 and Acute non-recurrent frontal sinusitis J01.10 [facility] [address] [place] [address] 04/22/2025 [facility] Acute cough R05.1 [facility] [address] [place] [address] 04/24/2025 [facility] [address] [place] [address] 04/25/2025 [facility] Community acquired pneumonia of right middle lobe of lung J18.9 [facility] [address] [address] 04/25/2025 [facility] Community acquired pneumonia of right middle lobe of lung J18.9 [facility] [address] [place] [address] 04/29/2025 [facility] [address] [address] 05/01/2025 [facility] [address] [address] 05/05/2025 [facility] Multiple thyroid nodules E04.[address] [address] 05/14/2025 [facility] Encounter for genera l adult medical examination without abnormal findings Z00.00 ; Essential (primary) hypertension I10 ; Chronic obstructive pulmonary disease, unspecified COPD type J44.9 ; Obstructive sleep apnea syndrome G47.33 ; Multiple thyroid nodules E04.2 ; Encounter for immunization Z23 and Tobacco use Z72.0 [facility] [address] [place] [address] 05/14/2025 [facility] [address] [place] [address] 06/06/2025 [facility] ASSESSMENTS Encounter [...] abnormal findings (ICD-10 - Z00.00) 1. RHCM: Davey was done last yesr - report not [...] Multiple thyroid nodules seen on CT at [facility]. Thyroid ultrasound is pending 6. Flu shot given today 7. Tobacco use: Called in NicoDerm patches 05/14/2025 Essential (primary) hypertension (ICD-10 - I10) 1. RHCM: Davey was done last yesr - report not [...] Multiple thyroid nodules seen on CT at [facility]. Thyroid ultrasound is pending 6. Flu shot given today 7. Tobacco use: Called in NicoDerm patches 07/03/2024 Moderate persistent asthma with acute exacerbation [...] taper and renew his bronchodilators, albuterol and budesonide/formot alfred. I emphasized again the need for smoking [...] COPD type (ICD-10 - J44.9) 1. RHCM: Davey was done last yesr - report not [...] Multiple thyroid nodules seen on CT at [facility]. Thyroid ultrasound is pending 6. Flu [...] apnea syndrome (ICD-10 - G47.33) 1. RHCM: Davey was done last yesr - report not [...] Multiple thyroid nodules seen on CT at [facility]. Thyroid ultrasound is pending 6. Flu shot given today 7. Tobacco use: Called in NicoDerm patches 05/14/2025 Multiple thyroid nodules (ICD-10 - E04.2) 1. RHCM: Davey was done last yesr - report not [...] Multiple thyroid nodules seen on CT at [facility]. Thyroid ultrasound is pending 6. Flu shot given today 7. Tobacco use: Called in NicoDerm patches 05/14/2025 Encounter for immunization (ICD-10 - Z23) Influenza vaccine administered. VIS sheet given. Patient counseled and questions answered. 1. RHCM: Davey was done last yesr - report not [...] Multiple thyroid nodules seen on CT at [facility]. Thyroid ultrasound is pending 6. Flu shot given today 7. Tobacco use: Called in NicoDerm patches 05/14/2025 Tobacco use (ICD-10 - Z72.0) 1. RHCM: Davey was done last yesr - report not [...] Multiple thyroid nodules seen on CT at [facility]. Thyroid ultrasound is pending 6. Flu shot given today 7. Tobacco use: Called in NicoDerm patches PLAN OF TREATMENT Pending Test Test Name Order Date CT Chest without IV contrast 04/25/2025 US Soft Tissue 11/06/2023 XR Shoulder Left minimum 2 views 024 XR Chest with Right Ribs 11/06/2024 Future Test Test Name Order Date Rapid Influenza A/B 06/19/2024 Prostate-Specific Ag (PSA)-[id number] 2024 CBC, Platelet, w/o Differential-[id number] 1 QuantiFERON-TB Gold Plus-[id number] 05/14/20 Lipid Panel-[id number] 05/14/2025 TSH Rfx on Abnormal to Free [id number] Comp. Metabolic Panel ([id number] 2024 Next Appt Details Provider Name:ELISABETH DESOUZA , 08/25/2025 03:15:00 PM, [address] [place], [address], Provider Name:ELISABETH DESOUZA , 05/21/2026 03:30:00 PM, [address] [place], [address], Insurance Providers Payer Name Payer Address Payer Phone Subscriber Number Group Number Insured Name Patient Relationship to Insured Coverage Start Date Coverage End Date [address] [address] [phone] [id number] JEANNIE ELIZONDO Self - patient is the [...] CPAP self d/c Hospitalization History Reason Date(Month/Year) [facility] - cough 05/02/25
--- OUTSIDE RECORDS SUMMARY | 2025-06-27 09:12 | XMS_ITS | Data Portability ---
Author Organization [facility] Address [address] [address] Care Team Providers Care Relocation Manager Name Role Phone ELISABETH DESOUZA Primary Care Provider [phone] Assessment Encounter Date Assessment Date Assessment LastModified [...] booked for the same. He needs a auto transport driver on the day of the procedure. [...] Recorded Time Degeneration of lumbar intervertebral disc 96461463 Active Freda nelson MD [address] [facility] , [address], [place], [address], [facility] 9 10:37:21 Lumbar radiculopathy 024074891 Active Freda nelson MD [address] [facility] , [address], [place], [address], [place] [facility] 9 10:37:32 Spinal stenosis of lumbar region 37221467 Active Freda nelson MD [address] [facility] [address], [place], [address], [place] [facility] 9 10:37:53 Problem Notes None recorded. Procedures Surgical History Date Name Laterality Status Provider Name and Address Organization Details Recorded Time 02/06/20 19 Lumbar Epidural steroid injection under fluoroscopic guidance completed Freda Jordan MD [address] [facility] [address], [place], [address], [facility] 02/06/2019 14:29:37 Other completed Sheree Pierce [place] - [facility] 01/28/2019 14:20:14 Imaging Results [...] Vitals Date Recorded Heart rate Oxygen saturation Systolic And Diastolic Provider Name and Address Organization Details Last Updated DateTime 01/28/2019 89 /min 98 % 128/83 mm[Hg] Sheree Pierce [place] [facility] 01/28/2019 13:58:48 Date Recorded Heart rate Oxygen saturation Systolic And Diastolic Provider Name and Address Organization Details Last Updated DateTime 02/05/2019 80 /min 97 % 121/78 mm[Hg] Shreee Pierce [place] [facility] 02/05/2019 15:17:28 Social History Question Answer Notes LastModified by [facility] Details LastModified Time Tobacco Smoking Status Current Every Day [facility]oker Not [facility] 05/15/2020 03:16:11 Which Illicit Or Recreational Drugs Have You Used? No [id number] Information not available 05/15/2020 Education 12 Information no t available 01/28/2019 Live Alone Or With Others? With Others Girlfriend Information not available 01/28/2019 Marital Status Single Informatio n not available 01/28/2019 What Was The Date Of Your Most Recent Tobacco Screening? 02/06/2019 [id number] Information not available 05/15/2020 How Much Tobacco Do You Smoke? 1 PPD [id number] Information not available 05/15/2020 How Many Years Have You Smoked Tobacco? 35 [id number] Information not available 05/15/2020 Sex: Unknown Functional Status Question Answer Note LastModified by [facility] Details LastModified Time What is your level of alcohol consumption? 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 Information not available 01/28/2019 Mental Status None [...] ICD10 Code Diagnosis IMO Codes Diagnosis Note [id number] Freda Jordan MD PAIN OFFICE [address] [place] [address] 01/28/2019 13:32:54 01/28/2019 14:40:47 Lumbar radiculopathy 637090835 M54.16 Degenerati on of lumbar intervertebral disc 43604827 M51.36 Spinal junior nosis of lumbar region 47818037 M48.061 45292 Freda Jordan MD PAIN OFFICE [address] [place] [address] 02/05/2019 14:40:37 02/06/2019 14:38:09 Lumbar radiculopathy 070631976 M54.16 Degenerati on of lumbar intervertebral disc 78208145 M51.36 Spinal junior nosis of lumbar region 23926460 M48.061 Health Concerns Section Related Observation LastModified by Organization Detai ls LastModified Time None Recorded Concern Status LastModified by Organization Details LastModified Time None Recorded Advance Directives Directive None Recorded Payers Insurance Date Sequence Insurance Name Policy Number Policy Heller Covered Member ID Heller Member ID Guarantor Name 01/25/2019 1 [place] BCTJ Nguyen [id number] Ruddy Nguyen 01/25/2019 1 [place] Ruddy Nguyen [id number] Ruddy Nguyen 03/09/2019 1 [place] [id number] Ruddy Nguyen [id number] Ruddy Nguyen 01/25/2019 1 [place] Ruddy Nguyen [id number] Ruddy Nguyen Notes Date Note Type [...] foraminal narrowing.He has trialed physical therapy at [facility] with some pain benefit. Freda Jordan MD [address] [facility] , [address], [place], [address], [facility] 01/28/2019 15:20:12 02/05/2019 text/html He is here today for a lumbar epidural steroid injection under fluoroscopic guidance. Freda Jordan MD [address] [facility] , [address], [place], [address], [facility] 02/07/2019 09:56:01
[2025-06-27 09:25] LABS: MANUAL DIFF FLAG NO
[2025-06-27 10:05] LABS: Hematocrit 45.3 % (42.0-52.0); Hemoglobin 15.7 g/dl (14.0-18.0); Imm Gran Abs Auto 0.01 X10*3/uL (0.00-0.03); Imm Gran Pct Auto 0.1 % (0.0-0.4); Lymphocytes Absolute Auto 2.1 X10*3/uL (1.2-4.9); Mean Corpuscular HGB Conc 34.7 g/dl (31.0-36.0); Mean Corpuscular Hemoglobin 30.2 pg (27.0-33.0); Mean Corpuscular Volume 87.1 fL (80.0-98.0); NRBC Abs Auto 0.000 X10*3/uL (0.0-0.012); NRBC Pct Auto 0.0 /100WBC (0.0-0.2); Platelet Count 168 X10*3/uL (160-400); Red Blood Count 5.20 X10*6/uL (4.60-5.80); White Blood Count 7.5 X10*3/uL (4.8-10.8)
[2025-06-27 10:42] LABS: Alanine Aminotransferase 17 U/L (0-40); Albumin Level 4.6 g/dL (3.5-5.0); Alkaline Phosphatase 54 U/L (39-117); Anion Gap 12 (12-20); Aspartate Amino Transferase 17 U/L (5-37); Blood Urea Nitrogen 17 mg/dL (9-16); Calcium 9.0 mg/dL (8.4-10.2); Carbon Dioxide 25 mmol/L (22-29); Chloride 111 mmol/L (96-108); Cholesterol 198 mg/dL (<200); Estimated Glomerular Filt Rate > 60; HDL Cholesterol 35 mg/dL (>40); Potassium 4.1 mmol/L (3.3-5.1); Sodium 144 mmol/L (135-145); Total Protein 7.2 g/dL (6.5-8.0); Triglycerides 120 mg/dL (<150)
[2025-06-27 10:55] LABS: Prostate Specific Antigen 0.54 ng/mL (<0.05-4.0)
[2025-06-29 15:12] LABS: Quantiferon TB Gold Plus 1 NEGATIVE (NEGATIVE); TB Test (QFT) Mitogen -Nil >10.00 IU/mL; TB Test (QFT) Nil 0.04 IU/mL; TB Test (QFT) Plus TB1 -Nil 0.01 IU/mL; TB Test (QFT) Plus TB2 -Nil 0.01 IU/mL
== END 2025-06-27 09:07 | disposition home or self-care (01) ==
LOC: HO.LAB 09:06
PROVIDERS: Visit Provider Internal Medicine
DX: Z00.00 Encounter for general adult medical examination without abnormal findings (principal); I10 Essential (primary) hypertension; E04.2 Nontoxic multinodular goiter; Z12.5 Encounter for screening for malignant neoplasm of prostate; Z11.1 Encounter for screening for respiratory tuberculosis
CPT/HCPCS: 36415; 80053; 80061; 84153; 84443; 85025; 86480